=== PATIENT | female | born 1955 | race Caucasian/White ===

== ENCOUNTER 2019-01-13 09:42 | Day surgery (SDC) | payer BC, MEDICARE ==
[2019-01-13] MEDS ORDERED: Depo-Medrol 40 MG/ML IM ONE (09:43)
[2019-01-13] MEDS ORDERED: Marcaine 0.5% SDV 10 ML IJ ONE (09:43)
[2019-01-13] MEDS ORDERED: DIPRIVAN 200 MG/20 ML IV ONE (09:43)
--- NOTE | 2019-01-13 11:46 | XRAY ---
12 seconds fluoroscopy time in surgery for right shoulder injection.
--- NOTE | 2019-01-13 11:56 | XRAY ---
Indication: Left hip injection. Intraoperative fluoroscopy was provided for 12 seconds. Single digital spot image submitted for interpretation demonstrates needle tip projecting lateral to the femoral head. Small amount of contrast injected for needle tip placement. Correlate with intraoperative findings/report.
--- NOTE | 2019-01-13 12:21 | XRAY ---
Indication: Right shoulder injection. Intraoperative fluoroscopy was provided for 12 seconds. Single digital spot image submitted for interpretation demonstrates needle tip projecting over the superior medial humeral head. Small amount of contrast injected for needle tip placement. Correlate with intraoperative findings/report.
--- NOTE | 2019-01-13 12:22 | XRAY ---
6 seconds fluoroscopy time in surgery for left hip injection.
[2019-01-13] MEDS ORDERED: Lactated Ringers 1,000 ML IV ONE (14:59)
== END 2019-01-13 11:07 | disposition home or self-care (01) ==
LOC: SDC-PAIN 09:42
PROVIDERS: ATTEND Psychiatry & Neurology Pain Medicine
DX: M19.011 Primary osteoarthritis, right shoulder (principal); M16.12 Unilateral primary osteoarthritis, left hip; M25.511 Pain in right shoulder; M25.552 Pain in left hip; Z79.899 Other long term (current) drug therapy
CPT/HCPCS: 73030; 73501; 77002; J1030; J2704

== ENCOUNTER 2019-02-24 12:14 | Day surgery (SDC) | payer MEDICARE, OTHER ==
[2019-02-24] MEDS ORDERED: DIPRIVAN 200 MG/20 ML IV ONE (12:15)
[2019-02-24] MEDS ORDERED: Ketamine HCl 50 MG/ML IJ ONE (12:15)
[2019-02-24] MEDS ORDERED: Depo-Medrol 40 MG/ML IM ONE (12:15)
[2019-02-24] MEDS ORDERED: Marcaine 0.5% SDV 10 ML IJ ONE (12:15)
[2019-02-24] MEDS ORDERED: Lactated Ringers 1,000 ML IV ONE (13:05)
--- NOTE | 2019-02-24 13:57 | XRAY ---
8 seconds fluoroscopy time in surgery for left greater trochanteric bursa injection.
--- NOTE | 2019-02-24 14:06 | XRAY ---
Indication: Left hip injection. Intraoperative fluoroscopy was provided for 8 seconds. Single digital spot image submitted for interpretation demonstrates needle tip projecting lateral to the left greater trochanter. Small amount of contrast injected for needle tip placement. Correlate with intraoperative findings/report.
== END 2019-02-24 13:50 | disposition home or self-care (01) ==
LOC: SDC-PAIN 12:14
PROVIDERS: ATTEND Psychiatry & Neurology Pain Medicine
DX: M70.62 Trochanteric bursitis, left hip (principal); Z79.899 Other long term (current) drug therapy; I10 Essential (primary) hypertension; E03.9 Hypothyroidism, unspecified; D64.9 Anemia, unspecified; M06.9 Rheumatoid arthritis, unspecified; N19 Unspecified kidney failure
CPT/HCPCS: 73501; 77002; J1030; J2704

== ENCOUNTER 2019-06-30 12:17 | Day surgery (SDC) | payer MEDICARE ==
[2019-06-30] MEDS ORDERED: Depo-Medrol 40 MG/ML IM ONE (12:18)
[2019-06-30] MEDS ORDERED: Xylocaine-Mpf 2% 5 Ml Vial IJ ONE (12:18)
[2019-06-30] MEDS ORDERED: DIPRIVAN 200 MG/20 ML IV ONE (13:46)
--- NOTE | 2019-06-30 15:02 | XRAY ---
Indication: Bilateral L4-S1 MBB. Intraoperative fluoroscopy was provided for 31 seconds. 3 digital spot images submitted for interpretation demonstrates posterior needle tips projecting over the expected course of the left and right L4-S1 nerve roots. Correlate with intraoperative findings/report.
--- NOTE | 2019-06-30 15:17 | XRAY ---
31 seconds fluoroscopy time in surgery for bilateral L4-S1 MBB.
[2019-06-30] MEDS ORDERED: Lactated Ringers 1,000 ML IV ONE (16:46)
== END 2019-06-30 14:23 | disposition home or self-care (01) ==
LOC: SDC-PAIN 12:17
PROVIDERS: ATTEND Psychiatry & Neurology Pain Medicine
DX: M47.816 Spondylosis without myelopathy or radiculopathy, lumbar region (principal); M06.9 Rheumatoid arthritis, unspecified; I10 Essential (primary) hypertension; K21.9 Gastro-esophageal reflux disease without esophagitis; E03.9 Hypothyroidism, unspecified; D64.9 Anemia, unspecified; N19 Unspecified kidney failure; Z79.899 Other long term (current) drug therapy
CPT/HCPCS: 64493; 64494; 72020; 77002; J1030; J2704

== ENCOUNTER 2019-11-03 14:41 | Day surgery (SDC) | payer MEDICARE, OTHER ==
[2019-11-03] MEDS ORDERED: Marcaine 0.5% SDV 10 ML IJ ONE (14:42)
[2019-11-03] MEDS ORDERED: Xylocaine 1% Vial 30 ML PF IJ ONE (14:42)
[2019-11-03] MEDS ORDERED: Depo-Medrol 40 MG/ML IM ONE (14:42)
--- NOTE | 2019-11-03 17:04 | XRAY ---
Indication: Left hip injection. Intraoperative fluoroscopy was provided for 19 seconds. Single digital spot image submitted for interpretation demonstrates needle tip just lateral to the left femur neck. Small amount of contrast injected for needle tip placement. Correlate with intraoperative findings/report.
--- NOTE | 2019-11-03 17:10 | XRAY ---
19 seconds fluoroscopy time in surgery for left hip injection.
== END 2019-11-03 15:53 | disposition home or self-care (01) ==
LOC: SDC-PAIN 14:41
PROVIDERS: ATTEND Psychiatry & Neurology Pain Medicine
DX: M16.12 Unilateral primary osteoarthritis, left hip (principal); I10 Essential (primary) hypertension; E03.9 Hypothyroidism, unspecified; M06.9 Rheumatoid arthritis, unspecified; K21.9 Gastro-esophageal reflux disease without esophagitis; N19 Unspecified kidney failure; D64.9 Anemia, unspecified; Z79.899 Other long term (current) drug therapy
CPT/HCPCS: 20610; 73501; 77002; J1030; J2001; Q9966

== ENCOUNTER 2019-12-15 11:01 | Day surgery (SDC) | payer MEDICARE, OTHER ==
[2019-12-15] MEDS ORDERED: Depo-Medrol 40 MG/ML IM ONE (11:02)
[2019-12-15] MEDS ORDERED: Sodium Chloride 0.9(Preservative Free) 10 ML IJ ONE (11:02)
[2019-12-15] MEDS ORDERED: Xylocaine 1% Vial 30 ML PF IJ ONE (11:02)
[2019-12-15] MEDS ORDERED: Decadron 4 MG INJ IV ONE (11:02)
[2019-12-15] MEDS ORDERED: Ketamine HCl 50 MG/ML ONE (11:51)
[2019-12-15] MEDS ORDERED: DIPRIVAN 200 MG/20 ML IV ONE (11:51)
--- NOTE | 2019-12-15 13:11 | XRAY ---
Indication: Left L4-S1 transforaminal ANA. Intraoperative fluoroscopy was provided for 27 seconds. 4 digital spot images submitted for interpretation demonstrates posterior needle tips projecting over the expected course of the left L4 and L5 nerve roots. Small amount of contrast injected for needle tip placement. Correlate with intraoperative findings/report. Incidental partially visualized epidural stimulator leads.
--- NOTE | 2019-12-15 13:13 | XRAY ---
Indication: Bilateral piriformis injection. Intraoperative fluoroscopy was provided for 17 seconds. 2 digital spot images submitted for interpretation demonstrates needle tip projecting over the left and right piriformis muscles. Small amount of contrast injected for needle tip placement. Correlate with intraoperative findings/report.
--- NOTE | 2019-12-15 13:28 | XRAY ---
27 seconds fluoroscopy time in surgery for left L4-S1 transforaminal ANA.
--- NOTE | 2019-12-15 13:28 | XRAY ---
17 seconds fluoroscopy time in surgery for bilateral piriformis injections.
[2019-12-15] MEDS ORDERED: Lactated Ringers 1,000 ML IV ONE (15:30)
== END 2019-12-15 12:25 | disposition home or self-care (01) ==
LOC: SDC-PAIN 11:01
PROVIDERS: ATTEND Psychiatry & Neurology Pain Medicine
DX: M54.16 Radiculopathy, lumbar region (principal); M79.18 Myalgia, other site; I10 Essential (primary) hypertension; E03.9 Hypothyroidism, unspecified; D64.9 Anemia, unspecified; M06.9 Rheumatoid arthritis, unspecified; K21.9 Gastro-esophageal reflux disease without esophagitis; N19 Unspecified kidney failure; Z79.899 Other long term (current) drug therapy
CPT/HCPCS: 20552; 64483; 64484; 72100; 72202; 77002; 77003; J1030; J1100; J2001; J2704; Q9966

== ENCOUNTER 2021-01-17 11:26 | Observation (INO) | payer MEDICARE, OTHER ==
[2021-01-17] MEDS ORDERED: MORPHINE SULFATE 4 MG INJ IM ONE (11:57)
[2021-01-17] MEDS ORDERED: MORPHINE SULFATE 4 MG INJ ONE (12:03)
--- NOTE | 2021-01-17 13:11 | XRAY ---
Indication: Right leg/medial groin pain. Status post right hip surgery 2 weeks ago. Two-dimensional sonogram and color Doppler imaging of the major venous vessels of the lower leg was performed. Comparison: None No thrombus seen in the examined deep venous vessels of the right leg including greater saphenous vein. Veins demonstrate normal compressibility. Venous waveforms are normal with and without augmentation. Medial groin demonstrates a irregular shaped fluid collection with internal echogenicities at least 7 cm in greatest dimension and at least 1.5 cm in thickness. No associated abnormal color Doppler flow. Finding could be related to recent surgery such as postoperative hematoma/seroma. Infected fluid collection not completely excluded. Impression: 1. Right leg negative for DVT. 2. Medial groin echogenic fluid collection as detailed. Rule out postoperative hematoma/seroma versus infected fluid collection.
[2021-01-17 14:08] LABS: Absolute Neutrophil Ct (ANC) 5.23 (1.4-6.9); BASOPHIL % 0.4 % (0.0-0.4); Basophil (Absolute #) 0.03 (0-0.4); Eosinophil % 3.6 % (0.00-5.0); Eosinophil (Absolute #) 0.25 (0-0.5); Hematocrit 23.5 % (35-47); Lymphocyte (Absolute #) 0.96 (1.0-4.6); Mean Cell Volume 105.9 fl (78-100); Mean Corpuscular Hemoglobin 30.2 pg (26-32); Mean Corpuscular Hgb Concent. 28.5 g/dl (32-36); Mean Platelet Volume 9.1 fl (7.5-11.0); Monocyte (Absolute #) 0.39 (0.0-1.3); Monocytes % 5.7 % (0.0-12.0); Neutrophil % 76.3 % (36.0-66.0); Platelet Count 303 K/mm3 (150-450); Red Blood Count 2.22 M/mm3 (4.1-5.4); Red Cell Distribution Width 15.9 % (11.5-14.0); White Blood Count 6.9 K/mm3 (4.0-10.5)
--- NOTE | 2021-01-17 14:12 | ERPHSYRPT ---
- History of Present Illness Time Seen by Provider: 01/17/21 11:34 Source: patient Exam Limitations: no limitations Patient Subjective Stated Complaint: Pt states "I had hip replacement on jan [address] Bynum in [facility]. Two days ago I started to notice bruising and a tighte sara on my inner thigh and I think I might have a blood clot." Triage Nursing Assessment: Pt presented alert and oriented X 3, skin pwd pt ambulates with a limp. Pt has wound vac on right hip. Pt right medial thigh swollen, bruised and firm to touch. Physician History: 65 years old female with history of multiple right hip surgeries with a recent 1 done on January 05, 2021, history of DVT in right lower extremity presented in the ER with 2 days history of increasing swelling and tightness in the right upper thigh with associated dull aching moderate intensity pain which is aggravated with palpation and walking. No erythema but did notice some bruising. Denies any calf pain. Denies any fall or trauma. Patient is taking aspirin but not on any blood thinner and is concerned about having a DVT. Denies any fever or chills. Method of Injury: other Occurred: days ago (2) Quality: aching, cramping Severity of Pain-Max: moderate Severity of Pain-Current: moderate Lower Extremities Pain: thigh: right Modifying Factors: Improves With: immobilization. Worsens With: movement Associated Symptoms: none Allergies/Adverse Reactions: Sulfa (Sulfonamide Antibiotics) Allergy (Intermediate, Verified 01/17/21 11:49) Rash Home Medications: Aspirin EC 325 mg [Ecotrin 325 MG] 325 mg PO DAILY 01/17/21 [History] Baclofen 10 mg PO DAILY 01/17/21 [History] Fluconazole [Diflucan ] 150 mg PO DAILY 01/17/21 [History] Oxycodone HCl 10 mg PO DAILY 01/17/21 [History] cefaDROXiL [Cefadroxil] 500 mg PO DAILY 01/17/21 [History] Hx Tetanus, Diphtheria Vaccination/Date Given: No Hx Influenza Vaccination/Date Given: Yes Hx Pneumococcal Vaccination/Date Given: No Immunizations Up to Date: Yes Travel Risk - International Travel Have you traveled outside of the country in past 3 weeks: No - Coronavirus Screening Are you exhibiting any of the following symptoms?: No Close contact with a COVID-19 positive Pt in past 14-21 Days: No - Review of Systems Constitutional: No Symptoms Eyes: No Symptoms Ears, Nose, & Throat: No Symptoms Respiratory: No Symptoms Cardiac: No Symptoms Abdominal/Gastrointestinal: Constipation Genitourinary Symptoms: No Symptoms Musculoskeletal: Joint Pain, Myalgias Skin: No Symptoms Neurological: No Symptoms Psychological: No Symptoms Endocrine: No Symptoms Hematologic/Lymphatic: No Symptoms Immunological/Allergic: No Symptoms - Past Medical History Pertinent Past Medical History: Yes Neurological History: No Pertinent History ENT History: No Pertinent History Cardiac History: Hypertension Respiratory History: Bronchitis, COPD Endocrine Medical History: Hypothyroidism Musculoskeletal History: Arthritis GI Medical History: GERD, Ulcer History: Renal Disease Psycho-Social History: No Pertinent History Female Reproductive Disorders: No Pertinent History - Past Surgical History Past Surgical History: Yes Other Surgical History: right hip. hysterectomy. bilat knee. right rotator cuff - Social History Smoking Status: Former smoker Exposure to second hand smoke: No Drug Use: none Patient Lives Alone: No - Female History Hx Now: No - Nursing Vital Signs Nursing Vital Signs: Initial Vital Signs Temperature 98.1 F 01/17/21 11:38 Pulse Rate 82 01/17/21 11:38 Respiratory Rate 20 01/17/21 11:38 Blood Pressure 137/58 01/17/21 11:38 O2 Sat by Pulse Oximetry 94 L 01/17/21 11:38 Pain Scale Pain Intensity 4 - Physical Exam General Appearance: no apparent distress Eyes, Ears, Nose, Throat Exam: normal ENT inspection Neck Exam: normal inspection, full range of motion Cardiovascular/Respiratory Exam: normal breath sounds, regular rate/rhythm Gastrointestinal/Abdominal Exam: non-tender, soft, no organomegaly Back Exam: normal inspection, normal range of motion Hips Exam: bilateral: non-tender, normal inspection, normal range of motion, no evidence of injury Legs Exam: right leg: pain, soft tissue tenderness, swelling (Right upper inner thigh 6 x 6 cm area of swelling, tenderness, no increased temperature, no induration.), left leg: non-tender, normal inspection, normal range of motion, no evidence of injury Knees Exam: bilateral knee: non-tender, normal inspection, normal range of motion Ankle Exam: bilateral ankle: non-tender, normal inspection, normal range of motion, no evidence of injury Foot Exam: bilateral foot: non-tender, normal inspection, normal range of motion Neuro/Tendon Exam: normal sensation, normal motor functions Mental Status Exam: alert, oriented x 3, cooperative Skin Exam: normal color SpO2 Interpretation: normal SpO2: 99 O2 Delivery: Room Air - Course Nursing assessment & vital signs reviewed: Yes Ordered Tests: Active Orders 24 hr Category Date Time Status Bedrest ROUTINE Activity 01/17/21 17:31 Active Up With Assistance ROUTINE Activity 01/17/21 17:31 Active Code Status Order ROUTINE Care 01/17/21 17:31 Active Fall Protocol ROUTINE Care 01/17/21 17:31 Active IV Care Q6H Care 01/17/21 17:[address] in Observation ROUTINE Care 01/17/21 17:31 Active Andrew Nettles, Apply ROUTINE Care 01/17/21 17:31 Active Weight,Daily 0600 Care 01/17/21 17:31 Active VENOUS UNILAT/LIMITED EXTREMIT [US] Stat Exams 01/17/21 11:56 Completed BLOOD CULTURE Stat Lab 01/17/21 14:27 Received CBC W DIFF AM.LAB Lab 01/18/21 04:00 Ordered CBC W DIFF Stat Lab 01/17/21 13:50 Completed CMP AM.LAB Lab 01/18/21 04:00 Ordered CMP Stat Lab 01/17/21 13:50 Completed HEMOGLOBIN AND HEMATOCRIT Stat Lab 01/17/21 19:29 Ordered Lactic Acid Stat Lab 01/17/21 13:55 Completed UA W/RFX UR CULTURE Stat Lab 01/17/21 14:18 Completed Transfer Order Routine Transfer 01/17/21 Completed Medication Summary Generic Name Dose Route Start Last Admin Trade Name Freq PRN Reason Stop Dose Admin Acetaminophen 650 mg 01/17/21 17:31 Tylenol 325 Mg PO 02/16/21 17:30 Q4H PRN PRN PAIN AND/OR FEVER Famotidine 20 mg 01/17/21 22:00 Pepcid 20 Mg Vial IV 02/16/21 21:59 Q12HT ESTEBAN Sodium Chloride 1,000 mls @ 50 mls/hr 01/17/21 17:31 Sodium Chloride 0.9% 1000 Ml IV 02/16/21 17:30 .Q20H ESTEBAN Ondansetron HCl 4 mg 01/17/21 17:31 Zofran 4 Mg/2 Ml Vial IV 02/16/21 17:30 Q6H PRN PRN NAUSEA/VOMITING Discontinued Medications Generic Name Dose Route Start Last Admin Trade Name Melissa PRN Reason Stop Dose Admin Fentanyl Citrate 25 mcg 01/17/21 16:46 01/17/21 16:48 Sublimaze 100 Mcg/2 Ml IV 01/17/21 16:47 25 mcg STAT ONE Administration Fentanyl Citrate Confirm 01/17/21 16:46 Sublimaze 100 Mcg/2 Ml Administered 01/17/21 16:47 Dose 100 mcg .ROUTE .STK-MED ONE Sodium Chloride 500 mls @ 500 mls/hr 01/17/21 15:26 01/17/21 16:50 Sodium Chloride 0.9% 500 Ml IV 01/17/21 16:25 500 mls/hr .Q1H ONE Administration Sodium Chloride Confirm 01/17/21 16:49 Sodium Chloride 0.9% 500 Ml Administered 01/17/21 16:50 Dose 500 mls @ ud IV .STK-MED ONE Morphine Sulfate 4 mg 01/17/21 11:57 01/17/21 12:05 Morphine Sulfate 4 Mg Inj IM 01/17/21 11:58 4 mg STAT ONE Administration Morphine Sulfate Confirm 01/17/21 12:03 Morphine Sulfate 4 Mg Inj Administered 01/17/21 12:04 Dose 4 mg .ROUTE .STK-MED ONE Ondansetron HCl 4 mg 01/17/21 16:46 01/17/21 16:48 Zofran 4 Mg/2 Ml Vial IV 01/17/21 16:47 4 mg STAT ONE Administration Ondansetron HCl Confirm 01/17/21 16:46 Zofran 4 Mg/2 Ml Vial Administered 01/17/21 16:47 Dose 4 mg .ROUTE .STK-MED ONE Lab/Rad Data: Laboratory Result Diagrams 01/17/21 13:50 01/17/21 13:50 Laboratory Results 01/17/21 01/17/21 01/17/21 Range/Units 14:18 13:55 13:50 WBC (4.0-10.5) K/mm3 RBC (4.1-5.4) M/mm3 Hgb (12.0-16.0) gm/dl Hct (35-47) % MCV (78-100) fl MCH (26-32) pg MCHC (32-36) g/dl RDW (11.5-14.0) % Plt Count (150-450) K/mm3 MPV (7.5-11.0) fl Gran % (36.0-66.0) % Eos # (Auto) (0-0.5) Absolute Lymphs (auto) (1.0-4.6) Absolute Monos (auto) (0.0-1.3) Lymphocytes % (24.0-44.0) % Monocytes % (0.0-12.0) % Eosinophils % (0.00-5.0) % Basophils % (0.0-0.4) % Absolute Granulocytes (1.4-6.9) Basophils # (0-0.4) Sodium 140 (137-145) mmol/L Potassium 4.1 (3.5-5.1) mmol/L Chloride 109 H (98-107) mmol/L Carbon Dioxide 24 (22-30) mmol/L Anion Gap 11.5 (5-15) MEQ/L BUN 32 H (7-17) mg/dL Creatinine 0.94 (0.52-1.04) mg/dL Estimated GFR > 60.0 ML/MIN Glucose 85 (74-106) mg/dL Lactic Acid 0.5 (0.4-2.0) Calcium 8.6 (8.4-10.2) mg/dL Total Bilirubin 0.30 (0.2-1.3) mg/dL AST 19 (14-36) U/L ALT 6 (0-35) U/L Alkaline Phosphatase 84 (38-126) U/L Serum Total Protein 6.3 (6.3-8.2) g/dL Albumin 3.4 L (3.5-5.0) g/dL Urine Color YELLOW (YELLOW) Urine Appearance CLEAR (CLEAR) Urine pH 6.0 (5-6) Ur Specific [place] 1.027 (1.005-1.025) Urine Protein NEGATIVE (Negative) Urine Ketones NEGATIVE (NEGATIVE) Urine Blood NEGATIVE (0-5) Basil/ul Urine Nitrite NEGATIVE (NEGATIVE) Urine Bilirubin NEGATIVE (NEGATIVE) Urine Urobilinogen NEGATIVE (0-1) mg/dL Ur Leukocyte Esterase NEGATIVE (NEGATIVE) Urine WBC (Auto) 0-2 (0-5) /HPF Urine RBC (Auto) NONE (0-2) /HPF U Hyaline Cast (Auto) 3-5 (0-2) /LPF U Epithel Cells (Auto) RARE (FEW) /HPF Urine Bacteria (Auto) NONE (NEGATIVE) /HPF Urine Mucus (Auto) SLIGHT (NEGATIVE) /HPF Urine Culture Reflexed NO (NO) Urine Glucose NEGATIVE (NEGATIVE) mg/dL 01/17/21 Range/Units 13:50 WBC 6.9 (4.0-10.5) K/mm3 RBC 2.22 L (4.1-5.4) M/mm3 Hgb 6.7 L* (12.0-16.0) gm/dl Hct 23.5 L (35-47) % MCV 105.9 H (78-100) fl MCH 30.2 (26-32) pg MCHC 28.5 L (32-36) g/dl RDW 15.9 H (11.5-14.0) % Plt Count 303 (150-450) K/mm3 MPV 9.1 (7.5-11.0) fl Gran % 76.3 H (36.0-66.0) % Eos # (Auto) 0.25 (0-0.5) Absolute Lymphs (auto) 0.96 L (1.0-4.6) Absolute Monos (auto) 0.39 (0.0-1.3) Lymphocytes % 14.0 L (24.0-44.0) % Monocytes % 5.7 (0.0-12.0) % Eosinophils % 3.6 (0.00-5.0) % Basophils % 0.4 (0.0-0.4) % Absolute Granulocytes 5.23 (1.4-6.9) Basophils # 0.03 (0-0.4) Sodium (137-145) mmol/L Potassium (3.5-5.1) mmol/L Chloride (98-107) mmol/L Carbon Dioxide (22-30) mmol/L Anion Gap (5-15) MEQ/L BUN (7-17) mg/dL Creatinine (0.52-1.04) mg/dL Estimated GFR ML/MIN Glucose (74-106) mg/dL Lactic Acid (0.4-2.0) Calcium (8.4-10.2) mg/dL Total Bilirubin (0.2-1.3) mg/dL AST (14-36) U/L ALT (0-35) U/L Alkaline Phosphatase (38-126) U/L Serum Total Protein (6.3-8.2) g/dL Albumin (3.5-5.0) g/dL Urine Color (YELLOW) Urine Appearance (CLEAR) Urine pH (5-6) Ur Specific [place] (1.005-1.025) Urine Protein (Negative) Urine Ketones (NEGATIVE) Urine Blood (0-5) Basil/ul Urine Nitrite (NEGATIVE) Urine Bilirubin (NEGATIVE) Urine Urobilinogen (0-1) mg/dL Ur Leukocyte Esterase (NEGATIVE) Urine WBC (Auto) (0-5) /HPF Urine RBC (Auto) (0-2) /HPF U Hyaline Cast (Auto) (0-2) /LPF U Epithel Cells (Auto) (FEW) /HPF Urine Bacteria (Auto) (NEGATIVE) /HPF Urine Mucus (Auto) (NEGATIVE) /HPF Urine Culture Reflexed (NO) Urine Glucose (NEGATIVE) mg/dL - Progress Progress: pain not gone completely, re-examined Progress Note: 01/17/21 14:39 65 years old is evaluated for right upper thigh pain and swelling. She is given morphine for symptomatic relief. I have obtained ultrasound which is negative for DVT but did show a possible hematoma/seroma. Abscess/infectious process could not be ruled out. I have obtained blood work and has normal white count with a hemoglobin of 6.7. Patient report last time when she was discharged from hospital her hemoglobin was in mid sevens after transfusion as it dropped after surgery. She is currently on antibiotics prophylactically for any infectious process. Chemistries grossly unremarkable. He is given small fluid bolus as patient was reporting some lightheadedness and generalized weakness. I believe this is secondary to her low hemoglobin. I have called Dr. Bynum and is waiting for his call back. 01/17/21 16:47 I have discussed with her orthopedic surgeon Dr. Bynum, have reviewed ultrasound findings, lab work and patient presentation, recommended transfusion as it does not seem that she has infectious process going on. Recommended monitoring her H&H and if remains stable can be discharged after transfusions. I have discussed with Dr. Hays, who agrees with admission and here as an observation with transfusion and monitoring. I have discussed with him about Dr. Bynum recommendations and he is okay with keeping patient in here. Plan discussed with patient to understand and agrees with it. Risk and benefits of transfusions discussed with patient in detail and she wants to go ahead with transfusions of packed RBCs. Discussed with : Antonia Will see patient in: hospital (observation) Counseled pt/family regarding: lab results, diagnosis, rad results - Departure Departure Disposition: Observation Clinical Impression: Symptomatic anemia Thigh hematoma Qualifiers: Encounter type: initial encounter Laterality: right Qualified Code(s): S70.11XA - Contusion of right thigh, initial encounter Condition: Stable Critical Care Time: No
[2021-01-17 14:21] LABS: ALBUMIN 3.4 g/dL (3.5-5.0); ALKALINE PHOSPHATASE 84 U/L (38-126); ANION GAP 11.5 MEQ/L (5-15); BLOOD UREA NITROGEN 32 mg/dL (7-17); CHLORIDE 109 mmol/L (98-107); Calcium 8.6 mg/dL (8.4-10.2); Carbon Dioxide 24 mmol/L (22-30); Creatinine 1 0.94 mg/dL (0.52-1.04); EST GLOMERULAR FILTRATION RATE > 60.0 ML/MIN; Glucose 85 mg/dL (74-106); Potassium 4.1 mmol/L (3.5-5.1); SGOT/AST 19 U/L (14-36); SGPT/ALT 6 U/L (0-35); SODIUM 140 mmol/L (137-145); Total Protein 6.3 g/dL (6.3-8.2)
[2021-01-17 14:25] LABS: Hemoglobin 6.7 gm/dl (12.0-16.0)
[2021-01-17 14:58] LABS: Appearance CLEAR (CLEAR); Bilirubin NEGATIVE (NEGATIVE); Blood NEGATIVE Ery/ul (0-5); Epithelial Cells RARE /HPF (FEW); Glucose NEGATIVE (NEGATIVE); Ketones NEGATIVE (NEGATIVE); Leukocyte Esterase NEGATIVE (NEGATIVE); Mucus SLIGHT /HPF (NEGATIVE); Nitrite NEGATIVE (NEGATIVE); Protein,Urine Dip NEGATIVE (Negative); Specific Gravity 1.027 (1.005-1.025); Urobilinogen NEGATIVE mg/dL (0-1); WBC 0-2 /HPF (0-5)
[2021-01-17] MEDS ORDERED: Sodium Chloride 0.9% 500 ML 500 ML IV ONE ×2 (15:26→16:49)
[2021-01-17] MEDS ORDERED: SUBLIMAZE 100 MCG/2 ML IV ONE (16:46)
[2021-01-17] MEDS ORDERED: SUBLIMAZE 100 MCG/2 ML ONE (16:46)
[2021-01-17] MEDS ORDERED: Zofran 4 MG/2 ML VIAL ONE (16:46)
[2021-01-17] MEDS ORDERED: Zofran 4 MG/2 ML VIAL IV ONE (16:46)
[2021-01-17] MEDS ORDERED: TYLENOL 325 MG PO PRN (17:31)
[2021-01-17] MEDS ORDERED: Sodium Chloride 0.9% 1000 ML 1,000 ML IV SCH (17:31)
[2021-01-17] MEDS ORDERED: Zofran 4 MG/2 ML VIAL IV PRN (17:31)
[2021-01-17 18:51] LABS: ABO TYPING O; Antibody Screen NEGATIVE (NEGATIVE); RH TYPING POSITIVE
[2021-01-17 18:53] LABS: CROSS MATCH (PRBC) COMPATIBLE (COMPATIBLE)
[2021-01-17 20:20] LABS: Slide Review 1 YES
[2021-01-17] MEDS ORDERED: Oxy-IR 5 MG PO PRN ×2 (21:15→21:23)
[2021-01-17] MEDS: LIORESAL 10 MG PO SCH (21:56)
[2021-01-17] MEDS ORDERED: Requip 0.5 MG PO SCH (22:00)
[2021-01-17] MEDS: Naprosyn 500 MG PO SCH (22:07)
[2021-01-17] MEDS: Ecotrin 325 MG PO SCH (22:10)
[2021-01-17] MEDS: Pepcid 20 MG VIAL IV SCH ×2 (22:10→22:16)
[2021-01-17] MEDS: TOPIRAMATE PO SCH (22:11)
[2021-01-18] MEDS: Pepcid 20 MG VIAL IV SCH ×2 (01:32→09:55)
[2021-01-18 02:24] LABS: BASOPHIL % 0.4 % (0.0-0.4); Basophil (Absolute #) 0.02 (0-0.4); Hematocrit 23.9 % (35-47); Lymphocyte (Absolute #) 1.05 (1.0-4.6); Mean Cell Volume 102.6 fl (78-100); Mean Corpuscular Hgb Concent. 29.3 g/dl (32-36); Mean Platelet Volume 8.3 fl (7.5-11.0); Monocyte (Absolute #) 0.44 (0.0-1.3); Monocytes % 8.8 % (0.0-12.0); Neutrophil % 63.8 % (36.0-66.0); Platelet Count 257 K/mm3 (150-450); Red Blood Count 2.33 M/mm3 (4.1-5.4); Red Cell Distribution Width 15.6 % (11.5-14.0)
[2021-01-18 03:55] LABS: CROSS MATCH (PRBC) COMPATIBLE (COMPATIBLE)
[2021-01-18 05:00] LABS: ALBUMIN 2.8 g/dL (3.5-5.0); ALKALINE PHOSPHATASE 79 U/L (38-126); ANION GAP 8.2 MEQ/L (5-15); BLOOD UREA NITROGEN 28 mg/dL (7-17); CHLORIDE 113 mmol/L (98-107); Carbon Dioxide 22 mmol/L (22-30); Creatinine 1 0.75 mg/dL (0.52-1.04); EST GLOMERULAR FILTRATION RATE > 60.0 ML/MIN; Glucose 93 mg/dL (74-106); SGOT/AST 17 U/L (14-36); SGPT/ALT 7 U/L (0-35); SODIUM 139 mmol/L (137-145); Total Protein 5.4 g/dL (6.3-8.2)
[2021-01-18 07:05] VITALS: BP 104/53; PULSE 65; O2SAT 97
[2021-01-18 09:05] LABS: Hemoglobin 9.1 gm/dl (12.0-16.0)
[2021-01-18 09:12] LABS: Hematocrit 30.4 % (35-47)
[2021-01-18] MEDS: Ecotrin 325 MG PO SCH (09:52)
[2021-01-18] MEDS: Naprosyn 500 MG PO SCH (09:52)
[2021-01-18] MEDS: LIORESAL 10 MG PO SCH (09:53)
[2021-01-18] MEDS: TOPIRAMATE PO SCH (09:55)
--- NOTE | 2021-01-18 10:16 | PCM.SSS ---
History of Present Illness - Chief Complaint Chief Complaint: swelling on right thigh History of Present Illness: is a 65 year old female with history of multiple right hip surgeries with a recent 1 done on January 05, 2021, history of DVT in right lower extremity presented in the ER with 2 days history of increasing swelling and tightness in the right upper thigh with associated dull aching moderate intensity pain which is aggravated with palpation and walking. No erythema but did notice some bruising. Denies any calf pain. Denies any fall or trauma. Patient is taking aspirin but not on any blood thinner and is concerned about having a DVT. Denies any fever or chills. Method of Injury: other Occurred: days ago (2) Quality: aching, cramping Severity of Pain-Max: moderate Severity of Pain-Current: moderate Lower Extremities Pain: thigh: right Modifying Factors: Improves With: immobilization. Worsens With: movement Associated Symptoms: none. - Review of Systems Constitutional: No Fever, No Chills Eyes: No Symptoms Ears, Nose, & Throat: No Symptoms Respiratory: No Cough, No Short Of Breath Cardiac: No Chest Pain, No Edema, No Syncope Abdominal/Gastrointestinal: No Abdominal Pain, No Nausea, No Vomiting, No Diarrhea Genitourinary Symptoms: No Dysuria Musculoskeletal: Other (right thigh swelling, hematoma, recent hip surgery), No Back Pain, No Neck Pain Skin: No Rash Neurological: No Dizziness, No Focal Weakness, No Sensory Changes Psychological: No Symptoms Endocrine: No Symptoms Hematologic/Lymphatic: No Symptoms Immunological/Allergic: No Symptoms Medications & Allergies Home Medications: Home Medication List Aspirin EC 325 mg [Ecotrin 325 MG] 325 mg PO BID 01/17/21 [History Confirmed 01/18/21] Baclofen 10 mg PO BID 01/17/21 [History Confirmed 01/18/21] Fluconazole [Diflucan ] 150 mg PO UD 01/17/21 [History Confirmed 01/18/21] Oxycodone HCl 10 mg PO Q6H PRN PRN 01/17/21 [History Confirmed 01/18/21] cefaDROXiL [Cefadroxil] 500 mg PO BID 01/17/21 [History Confirmed 01/18/21] Acetaminophen 500 mg [Tylenol Extra Strength 500 mg] 500 mg PO TID PRN PRN 01/18/21 [History Confirmed 01/18/21] Ergocalciferol (Vitamin D2) [Vitamin D2] 50,000 unit PO Q7D 01/18/21 [History Confirmed 01/18/21] Levothyroxine Sodium 75 Mcg [Synthroid 75 Mcg] 75 mcg PO DAILY 01/18/21 [History Confirmed 01/18/21] Naproxen Sodium 220 mg [Aleve 220 MG] 220 mg PO BID 01/18/21 [History Confirmed 01/18/21] Omeprazole 40 mg PO DAILY 01/18/21 [History Confirmed 01/18/21] Ropinirole HCl [Requip] 1 mg PO HS 01/18/21 [History Confirmed 01/18/21] Topiramate [Topamax] 150 mg PO BID 01/18/21 [History Confirmed 01/18/21] Allergies/Adverse Reactions: Allergies Allergy/AdvReac Type Severity Reaction Status Date / Time sulfasalazine AdvReac Verified 01/18/21 07:27 - Past Medical History Past Medical History: Yes Neurological History: No Pertinent History ENT History: No Pertinent History Cardiac History: Hypertension Respiratory History: Bronchitis, COPD Endocrine Medical History: Hypothyroidism Musculoskelatal History: Arthritis GI Medical History: GERD, Ulcer History: Renal Disease Pyscho-Social History: No Pertinent History Reproductive Disorders: No Pertinent History - Female History Hx Last Menstrual Period: Hysterectomy at age 39 Are you now?: No - Past Surgical History Past Surgical History: Yes Musculskeletal Surgical Hx: Joint Replacement, Orthopedic Surgery Female Surgical History: Hysterectomy Other Surgical History: right hip. hysterectomy. bilat knee. right rotator cuff - Social History Smoking Status: Former smoker Exposure to second hand smoke: No Alcohol: None Drug Use: none - Physical Exam Vital Signs: Vital Signs - 24 hr Temp Pulse Resp BP Pulse Ox 01/18/21 07:04 97.5 F 65 18 104/53 97 01/18/21 04:00 97.5 F 77 12 106/56 98 01/18/21 00:00 98.1 F 74 14 96/52 96 01/17/21 20:00 98.1 F 79 16 124/59 99 01/17/21 18:30 99 01/17/21 18:04 98.5 F 82 16 122/56 95 01/17/21 17:21 98.5 F 83 22 122/56 95 01/17/21 17:04 97.9 F 79 20 114/68 98 01/17/21 16:10 82 16 120/70 100 01/17/21 15:30 97.9 F 79 20 90/70 100 01/17/21 14:23 97.9 F 74 20 124/80 98 01/17/21 13:21 97.9 F 80 18 119/68 99 01/17/21 12:31 98.0 F 61 20 127/76 100 01/17/21 11:38 98.1 F 82 20 137/58 94 L General Appearance: no apparent distress, alert Neurologic Exam: alert, oriented x 3, cooperative, normal mood/affect, nml cerebellar function, nml station & gait, sensation nml, No motor deficits Eye Exam: PERRL/EOMI, eyes nml inspection Ears, Nose, Throat Exam: normal ENT inspection, TMs normal, pharynx normal, moist mucous membranes Neck Exam: normal inspection, non-tender, supple, full range of motion Respiratory Exam: normal breath sounds, lungs clear, No respiratory distress Cardiovascular Exam: regular rate/rhythm, normal heart sounds, normal peripheral pulses Gastrointestinal/Abdomen Exam: soft, normal bowel sounds, No tenderness, No mass Back Exam: normal inspection, normal range of motion, No CVA tenderness, No vertebral tenderness Extremity Exam: normal inspection, normal range of motion, pelvis stable, swelling (right thigh) Skin Exam: normal color, warm, dry, No rash Wound Assessment: Skin/Wound Assessment Wound/Incision Assessment Start: 01/17/21 19:05 Text: Status: Active Freq: Q6H Protocol: Document 01/18/21 07:42 MB (Rec: 01/18/21 08:09 MB [id number]) Wound/Incision Assessment Right Lateral Hip Wound Assessment Admission Wound Type Incision Dressing Status Dry & Intact Drainage Amount None Drainage Description Serosanguineous Drainage Odor None/Absent Surrounding Tissue [place] Comment NPWT Lymphatic Exam: No adenopathy Results - Labs Lab/Micro Results: Lab Results-Last 24 Hours 01/17/21 01/17/21 01/17/21 Range/Units 13:50 13:50 13:55 WBC 6.9 (4.0-10.5) K/mm3 RBC 2.22 L (4.1-5.4) M/mm3 Hgb 6.7 L* (12.0-16.0) gm/dl Hct 23.5 L (35-47) % MCV 105.9 H (78-100) fl MCH 30.2 (26-32) pg MCHC 28.5 L (32-36) g/dl RDW 15.9 H (11.5-14.0) % Plt Count 303 (150-450) K/mm3 MPV 9.1 (7.5-11.0) fl Gran % 76.3 H (36.0-66.0) % Eos # (Auto) 0.25 (0-0.5) Absolute Lymphs (auto) 0.96 L (1.0-4.6) Absolute Monos (auto) 0.39 (0.0-1.3) Lymphocytes % 14.0 L (24.0-44.0) % Monocytes % 5.7 (0.0-12.0) % Eosinophils % 3.6 (0.00-5.0) % Basophils % 0.4 (0.0-0.4) % Absolute Granulocytes 5.23 (1.4-6.9) Basophils # 0.03 (0-0.4) Sodium 140 (137-145) mmol/L Potassium 4.1 (3.5-5.1) mmol/L Chloride 109 H (98-107) mmol/L Carbon Dioxide 24 (22-30) mmol/L Anion Gap 11.5 (5-15) MEQ/L BUN 32 H (7-17) mg/dL Creatinine 0.94 (0.52-1.04) mg/dL Estimated GFR > 60.0 ML/MIN Glucose 85 (74-106) mg/dL Lactic Acid 0.5 (0.4-2.0) Calcium 8.6 (8.4-10.2) mg/dL Total Bilirubin 0.30 (0.2-1.3) mg/dL AST 19 (14-36) U/L ALT 6 (0-35) U/L Alkaline Phosphatase 84 (38-126) U/L Serum Total Protein 6.3 (6.3-8.2) g/dL Albumin 3.4 L (3.5-5.0) g/dL Urine Color (YELLOW) Urine Appearance (CLEAR) Urine pH (5-6) Ur Specific [place] (1.005-1.025) Urine Protein (Negative) Urine Ketones (NEGATIVE) Urine Blood (0-5) Basil/ul Urine Nitrite (NEGATIVE) Urine Bilirubin (NEGATIVE) Urine Urobilinogen (0-1) mg/dL Ur Leukocyte Esterase (NEGATIVE) Urine WBC (Auto) (0-5) /HPF Urine RBC (Auto) (0-2) /HPF U Hyaline Cast (Auto) (0-2) /LPF U Epithel Cells (Auto) (FEW) /HPF Urine Bacteria (Auto) (NEGATIVE) /HPF Urine Mucus (Auto) (NEGATIVE) /HPF Urine Culture Reflexed (NO) Urine Glucose (NEGATIVE) mg/dL Slides for Path Review YES ABO Group Rh Factor Antibody Screen (NEGATIVE) Crossmatch (COMPATIBLE) 01/17/21 01/17/21 01/17/21 Range/Units 14:18 16:42 16:42 WBC (4.0-10.5) K/mm3 RBC (4.1-5.4) M/mm3 Hgb (12.0-16.0) gm/dl Hct (35-47) % MCV (78-100) fl MCH (26-32) pg MCHC (32-36) g/dl RDW (11.5-14.0) % Plt Count (150-450) K/mm3 MPV (7.5-11.0) fl Gran % (36.0-66.0) % Eos # (Auto) (0-0.5) Absolute Lymphs (auto) (1.0-4.6) Absolute Monos (auto) (0.0-1.3) Lymphocytes % (24.0-44.0) % Monocytes % (0.0-12.0) % Eosinophils % (0.00-5.0) % Basophils % (0.0-0.4) % Absolute Granulocytes (1.4-6.9) Basophils # (0-0.4) Sodium (137-145) mmol/L Potassium (3.5-5.1) mmol/L Chloride (98-107) mmol/L Carbon Dioxide (22-30) mmol/L Anion Gap (5-15) MEQ/L BUN (7-17) mg/dL Creatinine (0.52-1.04) mg/dL Estimated GFR ML/MIN Glucose (74-106) mg/dL Lactic Acid (0.4-2.0) Calcium (8.4-10.2) mg/dL Total Bilirubin (0.2-1.3) mg/dL AST (14-36) U/L ALT (0-35) U/L Alkaline Phosphatase (38-126) U/L Serum Total Protein (6.3-8.2) g/dL Albumin (3.5-5.0) g/dL Urine Color YELLOW (YELLOW) Urine Appearance CLEAR (CLEAR) Urine pH 6.0 (5-6) Ur Specific [place] 1.027 (1.005-1.025) Urine Protein NEGATIVE (Negative) Urine Ketones NEGATIVE (NEGATIVE) Urine Blood NEGATIVE (0-5) Basil/ul Urine Nitrite NEGATIVE (NEGATIVE) Urine Bilirubin NEGATIVE (NEGATIVE) Urine Urobilinogen NEGATIVE (0-1) mg/dL Ur Leukocyte Esterase NEGATIVE (NEGATIVE) Urine WBC (Auto) 0-2 (0-5) /HPF Urine RBC (Auto) NONE (0-2) /HPF U Hyaline Cast (Auto) 3-5 (0-2) /LPF U Epithel Cells (Auto) RARE (FEW) /HPF Urine Bacteria (Auto) NONE (NEGATIVE) /HPF Urine Mucus (Auto) SLIGHT (NEGATIVE) /HPF Urine Culture Reflexed NO (NO) Urine Glucose NEGATIVE (NEGATIVE) mg/dL Slides for Path Review ABO Group O Rh Factor POSITIVE Antibody Screen NEGATIVE (NEGATIVE) Crossmatch COMPATIBLE (COMPATIBLE) 01/18/21 01/18/21 01/18/21 Range/Units 02:15 02:15 03:00 WBC 5.0 (4.0-10.5) K/mm3 RBC 2.33 L (4.1-5.4) M/mm3 Hgb 7.0 L (12.0-16.0) gm/dl Hct 23.9 L (35-47) % MCV 102.6 H (78-100) fl MCH 30.0 (26-32) pg MCHC 29.3 L (32-36) g/dl RDW 15.6 H (11.5-14.0) % Plt Count 257 (150-450) K/mm3 MPV 8.3 (7.5-11.0) fl Gran % 63.8 (36.0-66.0) % Eos # (Auto) 0.30 (0-0.5) Absolute Lymphs (auto) 1.05 (1.0-4.6) Absolute Monos (auto) 0.44 (0.0-1.3) Lymphocytes % 21.0 L (24.0-44.0) % Monocytes % 8.8 (0.0-12.0) % Eosinophils % 6.0 H (0.00-5.0) % Basophils % 0.4 (0.0-0.4) % Absolute Granulocytes 3.20 (1.4-6.9) Basophils # 0.02 (0-0.4) Sodium 139 (137-145) mmol/L Potassium 4.0 (3.5-5.1) mmol/L Chloride 113 H (98-107) mmol/L Carbon Dioxide 22 (22-30) mmol/L Anion Gap 8.2 (5-15) MEQ/L BUN 28 H (7-17) mg/dL Creatinine 0.75 (0.52-1.04) mg/dL Estimated GFR > 60.0 ML/MIN Glucose 93 (74-106) mg/dL Lactic Acid (0.4-2.0) Calcium 8.0 L (8.4-10.2) mg/dL Total Bilirubin 0.20 (0.2-1.3) mg/dL AST 17 (14-36) U/L ALT 7 (0-35) U/L Alkaline Phosphatase 79 (38-126) U/L Serum Total Protein 5.4 L (6.3-8.2) g/dL Albumin 2.8 L (3.5-5.0) g/dL Urine Color (YELLOW) Urine Appearance (CLEAR) Urine pH (5-6) Ur Specific [place] (1.005-1.025) Urine Protein (Negative) Urine Ketones (NEGATIVE) Urine Blood (0-5) Basil/ul Urine Nitrite (NEGATIVE) Urine Bilirubin (NEGATIVE) Urine Urobilinogen (0-1) mg/dL Ur Leukocyte Esterase (NEGATIVE) Urine WBC (Auto) (0-5) /HPF Urine RBC (Auto) (0-2) /HPF U Hyaline Cast (Auto) (0-2) /LPF U Epithel Cells (Auto) (FEW) /HPF Urine Bacteria (Auto) (NEGATIVE) /HPF Urine Mucus (Auto) (NEGATIVE) /HPF Urine Culture Reflexed (NO) Urine Glucose (NEGATIVE) mg/dL Slides for Path Review ABO Group Rh Factor Antibody Screen (NEGATIVE) Crossmatch COMPATIBLE (COMPATIBLE) 01/18/21 Range/Units 08:50 WBC (4.0-10.5) K/mm3 RBC (4.1-5.4) M/mm3 Hgb 9.1 L D (12.0-16.0) gm/dl Hct 30.4 L (35-47) % MCV (78-100) fl MCH (26-32) pg MCHC (32-36) g/dl RDW (11.5-14.0) % Plt Count (150-450) K/mm3 MPV (7.5-11.0) fl Gran % (36.0-66.0) % Eos # (Auto) (0-0.5) Absolute Lymphs (auto) (1.0-4.6) Absolute Monos (auto) (0.0-1.3) Lymphocytes % (24.0-44.0) % Monocytes % (0.0-12.0) % Eosinophils % (0.00-5.0) % Basophils % (0.0-0.4) % Absolute Granulocytes (1.4-6.9) Basophils # (0-0.4) Sodium (137-145) mmol/L Potassium (3.5-5.1) mmol/L Chloride (98-107) mmol/L Carbon Dioxide (22-30) mmol/L Anion Gap (5-15) MEQ/L BUN (7-17) mg/dL Creatinine (0.52-1.04) mg/dL Estimated GFR ML/MIN Glucose (74-106) mg/dL Lactic Acid (0.4-2.0) Calcium (8.4-10.2) mg/dL Total Bilirubin (0.2-1.3) mg/dL AST (14-36) U/L ALT (0-35) U/L Alkaline Phosphatase (38-126) U/L Serum Total Protein (6.3-8.2) g/dL Albumin (3.5-5.0) g/dL Urine Color (YELLOW) Urine Appearance (CLEAR) Urine pH (5-6) Ur Specific [place] (1.005-1.025) Urine Protein (Negative) Urine Ketones (NEGATIVE) Urine Blood (0-5) Basil/ul Urine Nitrite (NEGATIVE) Urine Bilirubin (NEGATIVE) Urine Urobilinogen (0-1) mg/dL Ur Leukocyte Esterase (NEGATIVE) Urine WBC (Auto) (0-5) /HPF Urine RBC (Auto) (0-2) /HPF U Hyaline Cast (Auto) (0-2) /LPF U Epithel Cells (Auto) (FEW) /HPF Urine Bacteria (Auto) (NEGATIVE) /HPF Urine Mucus (Auto) (NEGATIVE) /HPF Urine Culture Reflexed (NO) Urine Glucose (NEGATIVE) mg/dL Slides for Path Review ABO Group Rh Factor Antibody Screen (NEGATIVE) Crossmatch (COMPATIBLE) - Radiology Impressions Radiology Exams & Impressions: Radiology Procedures Category Date Time Status VENOUS UNILAT/LIMITED EXTREMIT [US] Stat Exams 01/17/21 11:56 Completed Assessment/Plan (1) Symptomatic anemia Current Visit: Yes Status: Acute Assessment & Plan: Chief Complaint Diagnosis Symptomatic Anemia Allergies Allergy/AdvReac Type Severity Reaction Status Date / Time sulfasalazine AdvReac Verified 01/18/21 07:27 Vital Signs (Last 24 hours) Temp Pulse Resp BP Pulse Ox 01/18/21 07:04 97.5 F 65 18 104/53 97 01/18/21 04:00 97.5 F 77 12 106/56 98 01/18/21 00:00 98.1 F 74 14 96/52 96 01/17/21 20:00 98.1 F 79 16 124/59 99 01/17/21 18:30 99 01/17/21 18:04 98.5 F 82 16 122/56 95 01/17/21 17:21 98.5 F 83 22 122/56 95 01/17/21 17:04 97.9 F 79 20 114/68 98 01/17/21 16:10 82 16 120/70 100 01/17/21 15:30 97.9 F 79 20 90/70 100 01/17/21 14:23 97.9 F 74 20 124/80 98 01/17/21 13:21 97.9 F 80 18 119/68 99 01/17/21 12:31 98.0 F 61 20 127/76 100 01/17/21 11:38 98.1 F 82 20 137/58 94 L Home Medications Medication Instructions Recorded Confirmed Last Taken Type Aspirin EC 325 mg [Ecotrin 325 325 mg PO BID 01/17/21 01/18/21 Unknown History MG] Baclofen 10 mg PO BID 01/17/21 01/18/21 Unknown History Fluconazole [Diflucan ] 150 mg PO UD 01/17/21 01/18/21 Unknown History Oxycodone HCl 10 mg PO Q6H PRN PRN 01/17/21 01/18/21 Unknown History cefaDROXiL [Cefadroxil] 500 mg PO BID 01/17/21 01/18/21 Unknown History Acetaminophen 500 mg [Tylenol 500 mg PO TID PRN PRN 01/18/21 01/18/21 Unknown History Extra Strength 500 mg] Ergocalciferol (Vitamin D2) 50,000 unit PO Q7D 01/18/21 01/18/21 01/12/21 History [Vitamin D2] Levothyroxine Sodium 75 Mcg 75 mcg PO DAILY 01/18/21 01/18/21 Unknown History [Synthroid 75 Mcg] Naproxen Sodium 220 mg [Aleve 220 mg PO BID 01/18/21 01/18/21 Unknown History 220 MG] Omeprazole 40 mg PO DAILY 01/18/21 01/18/21 Unknown History Ropinirole HCl [Requip] 1 mg PO HS 01/18/21 01/18/21 Unknown History Topiramate [Topamax] 150 mg PO BID 01/18/21 01/18/21 Unknown History Current Medications Generic Name Dose Route Start Last Admin Trade Name Freq PRN Reason Stop Dose Admin Acetaminophen 650 mg 01/17/21 17:31 Tylenol 325 Mg PO 02/16/21 17:30 Q4H PRN PRN PAIN AND/OR FEVER Aspirin 325 mg 01/17/21 22:00 01/18/21 09:52 Ecotrin 325 Mg PO 02/16/21 21:59 325 mg BID ESTEBAN Administration Baclofen 10 mg 01/17/21 22:00 01/18/21 09:53 Lioresal 10 Mg PO 02/16/21 21:59 10 mg BID ESTEBAN Administration Famotidine 20 mg 01/17/21 22:00 01/18/21 09:55 Pepcid 20 Mg Vial IV 02/16/21 21:59 20 mg Q12HT ESTEBAN Administration Sodium Chloride 1,000 mls @ 50 mls/hr 01/17/21 17:31 01/18/21 01:02 Sodium Chloride 0.9% 1000 Ml IV 02/16/21 17:30 50 mls/hr .Q20H ESTEBAN Administration Naproxen 250 mg 01/17/21 22:00 01/18/21 09:52 Naprosyn 500 Mg PO 02/16/21 21:59 250 mg BID ESTEBAN Administration Ondansetron HCl 4 mg 01/17/21 17:31 Zofran 4 Mg/2 Ml Vial IV 02/16/21 17:30 Q6H PRN PRN NAUSEA/VOMITING Oxycodone HCl 10 mg 01/17/21 21:23 01/17/21 22:12 Oxy-Ir 5 Mg PO 01/22/21 21:22 10 mg Q6H PRN PRN Administration PAIN Ropinirole HCl 1 mg 01/17/21 22:00 01/17/21 22:10 Requip 0.5 Mg PO 02/16/21 21:59 1 mg HS ESTEBAN Administration Topiramate 150 mg 01/17/21 22:00 01/18/21 09:55 Topiramate PO 02/16/21 21:59 150 mg BID ESTEBAN Administration Discontinued Medications Generic Name Dose Route Start Last Admin Trade Name Freq PRN Reason Stop Dose Admin Fentanyl Citrate 25 mcg 01/17/21 16:46 01/17/21 16:48 Sublimaze 100 Mcg/2 Ml IV 01/17/21 16:47 25 mcg STAT ONE Administration Fentanyl Citrate Confirm 01/17/21 16:46 Sublimaze 100 Mcg/2 Ml Administered 01/17/21 16:47 Dose 100 mcg .ROUTE .STK-MED ONE Sodium Chloride 500 mls @ 500 mls/hr 01/17/21 15:26 01/17/21 16:50 Sodium Chloride 0.9% 500 Ml IV 01/17/21 16:25 500 mls/hr .Q1H ONE Administration Sodium Chloride Confirm 01/17/21 16:49 Sodium Chloride 0.9% 500 Ml Administered 01/17/21 16:50 Dose 500 mls @ ud IV .STK-MED ONE Morphine Sulfate 4 mg 01/17/21 11:57 01/17/21 12:05 Morphine Sulfate 4 Mg Inj IM 01/17/21 11:58 4 mg STAT ONE Administration Morphine Sulfate Confirm 01/17/21 12:03 Morphine Sulfate 4 Mg Inj Administered 01/17/21 12:04 Dose 4 mg .ROUTE .STK-MED ONE Ondansetron HCl 4 mg 01/17/21 16:46 01/17/21 16:48 Zofran 4 Mg/2 Ml Vial IV 01/17/21 16:47 4 mg STAT ONE Administration Ondansetron HCl Confirm 01/17/21 16:46 Zofran 4 Mg/2 Ml Vial Administered 01/17/21 16:47 Dose 4 mg .ROUTE .STK-MED ONE Oxycodone HCl 5 - 10 mg 01/17/21 21:15 Oxy-Ir 5 Mg PO 01/22/21 21:14 Q4HPRN PRN PAIN Intake & Output (Last 24 hours) 01/15/21 01/16/21 01/17/21 01/18/21 11:59 11:59 11:59 11:59 Intake Total 1541 Output Total 200 Balance 1341 Weight 68.2 kg 66.6 kg Microbiology Results (Last 24 hours) 01/17/21 14:27 Blood Blood Culture Gram Stain - Pending 01/17/21 14:27 Blood Blood Culture - Pending 01/17/21 13:50 Blood Blood Culture Gram Stain - Pending 01/17/21 13:50 Blood Blood Culture - Pending Laboratory Results (Last 24 hours) 01/18/21 01/18/21 01/18/21 08:50 03:00 02:15 WBC RBC Hgb 9.1 L D Hct 30.4 L MCV MCH MCHC RDW Plt Count MPV Gran % Eos # (Auto) Absolute Lymphs (auto) Absolute Monos (auto) Lymphocytes % Monocytes % Eosinophils % Basophils % Absolute Granulocytes Basophils # Sodium 139 Potassium 4.0 Chloride 113 H Carbon Dioxide 22 Anion Gap 8.2 BUN 28 H Creatinine 0.75 Estimated GFR > 60.0 Glucose 93 Lactic Acid Calcium 8.0 L Total Bilirubin 0.20 AST 17 ALT 7 Alkaline Phosphatase 79 Serum Total Protein 5.4 L Albumin 2.8 L Urine Color Urine Appearance Urine pH Ur Specific [place] Urine Protein Urine Ketones Urine Blood Urine Nitrite Urine Bilirubin Urine Urobilinogen Ur Leukocyte Esterase Urine WBC (Auto) Urine RBC (Auto) U Hyaline Cast (Auto) U Epithel Cells (Auto) Urine Bacteria (Auto) Urine Mucus (Auto) Urine Culture Reflexed Urine Glucose Slides for Path Review ABO Group Rh Factor Antibody Screen Crossmatch COMPATIBLE 01/18/21 01/17/21 01/17/21 02:15 16:42 16:42 WBC 5.0 RBC 2.33 L Hgb 7.0 L Hct 23.9 L MCV 102.6 H MCH 30.0 MCHC 29.3 L RDW 15.6 H Plt Count 257 MPV 8.3 Gran % 63.8 Eos # (Auto) 0.30 Absolute Lymphs (auto) 1.05 Absolute Monos (auto) 0.44 Lymphocytes % 21.0 L Monocytes % 8.8 Eosinophils % 6.0 H Basophils % 0.4 Absolute Granulocytes 3.20 Basophils # 0.02 Sodium Potassium Chloride Carbon Dioxide Anion Gap BUN Creatinine Estimated GFR Glucose Lactic Acid Calcium Total Bilirubin AST ALT Alkaline Phosphatase Serum Total Protein Albumin Urine Color Urine Appearance Urine pH Ur Specific [place] Urine Protein Urine Ketones Urine Blood Urine Nitrite Urine Bilirubin Urine Urobilinogen Ur Leukocyte Esterase Urine WBC (Auto) Urine RBC (Auto) U Hyaline Cast (Auto) U Epithel Cells (Auto) Urine Bacteria (Auto) Urine Mucus (Auto) Urine Culture Reflexed Urine Glucose Slides for Path Review ABO Group O Rh Factor POSITIVE Antibody Screen NEGATIVE Crossmatch COMPATIBLE 01/17/21 01/17/21 01/17/21 14:18 13:55 13:50 WBC RBC Hgb Hct MCV MCH MCHC RDW Plt Count MPV Gran % Eos # (Auto) Absolute Lymphs (auto) Absolute Monos (auto) Lymphocytes % Monocytes % Eosinophils % Basophils % Absolute Granulocytes Basophils # Sodium 140 Potassium 4.1 Chloride 109 H Carbon Dioxide 24 Anion Gap 11.5 BUN 32 H Creatinine 0.94 Estimated GFR > 60.0 Glucose 85 Lactic Acid 0.5 Calcium 8.6 Total Bilirubin 0.30 AST 19 ALT 6 Alkaline Phosphatase 84 Serum Total Protein 6.3 Albumin 3.4 L Urine Color YELLOW Urine Appearance CLEAR Urine pH 6.0 Ur Specific [place] 1.027 Urine Protein NEGATIVE Urine Ketones NEGATIVE Urine Blood NEGATIVE Urine Nitrite NEGATIVE Urine Bilirubin NEGATIVE Urine Urobilinogen NEGATIVE Ur Leukocyte Esterase NEGATIVE Urine WBC (Auto) 0-2 Urine RBC (Auto) NONE U Hyaline Cast (Auto) 3-5 U Epithel Cells (Auto) RARE Urine Bacteria (Auto) NONE Urine Mucus (Auto) SLIGHT Urine Culture Reflexed NO Urine Glucose NEGATIVE Slides for Path Review ABO Group Rh Factor Antibody Screen Crossmatch 01/17/21 13:50 WBC 6.9 RBC 2.22 L Hgb 6.7 L* Hct 23.5 L MCV 105.9 H MCH 30.2 MCHC 28.5 L RDW 15.9 H Plt Count 303 MPV 9.1 Gran % 76.3 H Eos # (Auto) 0.25 Absolute Lymphs (auto) 0.96 L Absolute Monos (auto) 0.39 Lymphocytes % 14.0 L Monocytes % 5.7 Eosinophils % 3.6 Basophils % 0.4 Absolute Granulocytes 5.23 Basophils # 0.03 Sodium Potassium Chloride Carbon Dioxide Anion Gap BUN Creatinine Estimated GFR Glucose Lactic Acid Calcium Total Bilirubin AST ALT Alkaline Phosphatase Serum Total Protein Albumin Urine Color Urine Appearance Urine pH Ur Specific [place] Urine Protein Urine Ketones Urine Blood Urine Nitrite Urine Bilirubin Urine Urobilinogen Ur Leukocyte Esterase Urine WBC (Auto) Urine RBC (Auto) U Hyaline Cast (Auto) U Epithel Cells (Auto) Urine Bacteria (Auto) Urine Mucus (Auto) Urine Culture Reflexed Urine Glucose Slides for Path Review YES ABO Group Rh Factor Antibody Screen Crossmatch Orders (Last 24 hours) Category Date Time Status Bedrest ROUTINE Activity 01/17/21 17:31 Active Up With Assistance ROUTINE Activity 01/17/21 17:31 Active Code Status Order ROUTINE Care 01/17/21 17:31 Active Fall Protocol Q1H Care 01/17/21 17:31 Active IV Care Q6H Care 01/17/21 17:[address] in Observation ROUTINE Care 01/17/21 17:31 Active Andrew Nettles, Apply ROUTINE Care 01/17/21 17:31 Active Telemetry q6h Care 01/17/21 17:38 Active Weight,Daily 0600 Care 01/17/21 17:31 Active VENOUS UNILAT/LIMITED EXTREMIT [US] Stat Exams 01/17/21 11:56 Completed BLOOD COMPONENT REQUEST Stat Lab 01/17/21 16:42 Completed BLOOD COMPONENT REQUEST Urgent Lab 01/18/21 03:00 Completed BLOOD CULTURE Stat Lab 01/17/21 14:27 Received CBC W DIFF AM.LAB Lab 01/18/21 02:15 Completed CBC W DIFF Stat Lab 01/17/21 13:50 Completed CMP AM.LAB Lab 01/18/21 02:15 Completed CMP Stat Lab 01/17/21 13:50 Completed HEMOGLOBIN AND HEMATOCRIT Urgent Lab 01/18/21 08:50 Completed Lactic Acid Stat Lab 01/17/21 13:55 Completed TYPE AND SCREEN Stat Lab 01/17/21 16:42 Completed UA W/RFX UR CULTURE Stat Lab 01/17/21 14:18 Completed Acetaminophen 325 mg [Tylenol 325 mg] Med 01/17/21 17:31 Active 650 mg PO Q4H PRN PRN Aspirin EC 325 mg [Ecotrin 325 MG] Med 01/17/21 22:00 Active 325 mg PO BID Baclofen 10 mg [Lioresal 10 mg] Med 01/17/21 22:00 Active 10 mg PO BID Famotidine 20 mg Vial [Pepcid 20 MG VIAL] Med 01/17/21 22:00 Active 20 mg IV Q12HT Fentanyl Citrate 100 Mcg/2 ml* [Sublimaze 100 Mcg/2 ml* Med 01/17/21 16:46 Discontinued ] 100 mcg .ROUTE .STK-MED ONE Fentanyl Citrate 100 Mcg/2 ml* [Sublimaze 100 Mcg/2 ml* Med 01/17/21 16:46 Discontinued ] 25 mcg IV STAT ONE Morphine Sulfate 4 mg Inj Med 01/17/21 12:03 Discontinued 4 mg .ROUTE .STK-MED ONE Morphine Sulfate 4 mg Inj Med 01/17/21 11:57 Discontinued 4 mg IM STAT ONE NaCl 0.9% 1000 ml [Sodium Chloride 0.9% 1000 ML] 1,000 Med 01/17/21 17:31 Active ml IV 50 mls/hr NaCl 0.9% 500 ml [Sodium Chloride 0.9% 500 ML] 500 ml Med 01/17/21 15:26 Discontinued IV 500 mls/hr NaCl 0.9% 500 ml [Sodium Chloride 0.9% 500 ML] 500 ml Med 01/17/21 16:49 Discontinued IV UD Naproxen 500 mg [Naprosyn 500 MG] Med 01/17/21 22:00 Active 250 mg PO BID Ondansetron HCl 4 mg/2 ml [Zofran 4 MG/2 ML VIAL] Med 01/17/21 16:46 Discontinued 4 mg .ROUTE .STK-MED ONE Ondansetron HCl 4 mg/2 ml [Zofran 4 MG/2 ML VIAL] Med 01/17/21 17:31 Active 4 mg IV Q6H PRN PRN Ondansetron HCl 4 mg/2 ml [Zofran 4 MG/2 ML VIAL] Med 01/17/21 16:46 Discontinued 4 mg IV STAT ONE Oxycodone HCl 5 mg Ir [Oxy-IR 5 MG] Med 01/17/21 21:23 Active 10 mg PO Q6H PRN PRN Oxycodone HCl 5 mg Ir [Oxy-IR 5 MG] Med 01/17/21 21:15 Discontinued 5 - 10 mg PO Q4HPRN PRN Ropinirole HCl 0.5 mg [Requip 0.5 MG] Med 01/17/21 22:00 Active 1 mg PO HS Topiramate Med 01/17/21 22:00 Active 150 mg PO BID Patient Care Notes (Last 24 hours) 01/18/21 04:30 Nursing Note by River Maya Second unit of blood started 0420. Initialized on 01/18/21 04:30 - END OF NOTE 01/18/21 02:45 (created 01/18/21 03:06) SBAR Note by River Maya SITUATION I am calling about SARINA AVILA the patient's code status is Full Code The problem I am calling about is: Patient's hgb 7.0 after 1 unit of blood. Notified Dr Knox who ordered 1 more unit of blood. ASSESSMENT RECOMMENDATION Physician notified at [phone] New Orders received: Vital Signs (Last 4 hours) Temp Pulse Resp BP Pulse Ox 01/18/21 00:00 98.1 F 74 14 96/52 96 Diagnois, Code Status Date of Arrival on Unit 01/17/21 Admitted From Emergency Dept Diagnosis Symptomatic Anemia Resucitation Status Full Code Intake and Output 24 Hours 01/17/21 01/18/21 06:59 06:59 Weight 64.8 kg Physical Assessment Anxiety Level None,at ease,Awake,Calm Mental Status Alert Patient Orientation Person,Place,Time Coma Scale Total 15 Breath Sounds [Anterior/ Clear Posterior Bilateral Throughout ] Cardiac Rhythm-SCCH Sinus Rhythm Bowel Sounds [All Quadrants] Present,Active Abdomen Description Soft,Non-Tender Urine Appearance Not Assessed Skin Color Normal for Race Skin Temperature Warm Pain Scale (Last 24 Hours) Pain Intensity 5 Pain Intensity 5 Pain Intensity 5 Pain Intensity 5 Pain Intensity 4 Pain Intensity 4 Pain Intensity 4 Pain Intensity 4 Pain Intensity 4 Pain Intensity 4 Pain Intensity 4 Pain Intensity 4 Pain Intensity 4 Pain Intensity 4 Pain Intensity 5 Pain Intensity 5 Pain Intensity 0 Pain Intensity 5 Pain Intensity 6 Pain Intensity 6 Pain Intensity 5 Pain Intensity 5 PAST MEDICAL HISTORY Neurological History No Pertinent History ENT History No Pertinent History Endocrine Medical History Hypothyroidism Respiratory History Bronchitis,COPD Cardiac History Hypertension GI Medical History GERD,Ulcer History Renal Disease Reproductive Disorders No Pertinent History Pyscho-Social History No Pertinent History Communicable Disease No Pertinent History Diet Order (Last 24 Hours) 01/17/21 Breakfast House Regular Diet Lab Results (Last 24 Hours) 01/18/21 01/17/21 01/17/21 Range/Units 02:15 16:42 16:42 WBC 5.0 (4.0-10.5) K/mm3 RBC 2.33 L (4.1-5.4) M/mm3 Hgb 7.0 L (12.0-16.0) gm/dl Hct 23.9 L (35-47) % MCV 102.6 H (78-100) fl MCH 30.0 (26-32) pg MCHC 29.3 L (32-36) g/dl RDW 15.6 H (11.5-14.0) % Plt Count 257 (150-450) K/mm3 MPV 8.3 (7.5-11.0) fl Gran % 63.8 (36.0-66.0) % Eos # (Auto) 0.30 (0-0.5) Absolute Lymphs (auto) 1.05 (1.0-4.6) Absolute Monos (auto) 0.44 (0.0-1.3) Lymphocytes % 21.0 L (24.0-44.0) % Monocytes % 8.8 (0.0-12.0) % Eosinophils % 6.0 H (0.00-5.0) % Basophils % 0.4 (0.0-0.4) % Absolute Granulocytes 3.20 (1.4-6.9) Basophils # 0.02 (0-0.4) Sodium (137-145) mmol/L Potassium (3.5-5.1) mmol/L Chloride (98-107) mmol/L Carbon Dioxide (22-30) mmol/L Anion Gap (5-15) MEQ/L BUN (7-17) mg/dL Creatinine (0.52-1.04) mg/dL Estimated GFR ML/MIN Glucose (74-106) mg/dL Lactic Acid (0.4-2.0) Calcium (8.4-10.2) mg/dL Total Bilirubin (0.2-1.3) mg/dL AST (14-36) U/L ALT (0-35) U/L Alkaline Phosphatase (38-126) U/L Serum Total Protein (6.3-8.2) g/dL Albumin (3.5-5.0) g/dL Urine Color (YELLOW) Urine Appearance (CLEAR) Urine pH (5-6) Ur Specific [place] (1.005-1.025) Urine Protein (Negative) Urine Ketones (NEGATIVE) Urine Blood (0-5) Basil/ul Urine Nitrite (NEGATIVE) Urine Bilirubin (NEGATIVE) Urine Urobilinogen (0-1) mg/dL Ur Leukocyte Esterase (NEGATIVE) Urine WBC (Auto) (0-5) /HPF Urine RBC (Auto) (0-2) /HPF U Hyaline Cast (Auto) (0-2) /LPF U Epithel Cells (Auto) (FEW) /HPF Urine Bacteria (Auto) (NEGATIVE) /HPF Urine Mucus (Auto) (NEGATIVE) /HPF Urine Culture Reflexed (NO) Urine Glucose (NEGATIVE) mg/dL Slides for Path Review ABO Group O Rh Factor POSITIVE Antibody Screen NEGATIVE (NEGATIVE) Crossmatch COMPATIBLE (COMPATIBLE) 01/17/21 01/17/21 01/17/21 Range/Units 14:18 13:55 13:50 WBC (4.0-10.5) K/mm3 RBC (4.1-5.4) M/mm3 Hgb (12.0-16.0) gm/dl Hct (35-47) % MCV (78-100) fl MCH (26-32) pg MCHC (32-36) g/dl RDW (11.5-14.0) % Plt Count (150-450) K/mm3 MPV (7.5-11.0) fl Gran % (36.0-66.0) % Eos # (Auto) (0-0.5) Absolute Lymphs (auto) (1.0-4.6) Absolute Monos (auto) (0.0-1.3) Lymphocytes % (24.0-44.0) % Monocytes % (0.0-12.0) % Eosinophils % (0.00-5.0) % Basophils % (0.0-0.4) % Absolute Granulocytes (1.4-6.9) Basophils # (0-0.4) Sodium 140 (137-145) mmol/L Potassium 4.1 (3.5-5.1) mmol/L Chloride 109 H (98-107) mmol/L Carbon Dioxide 24 (22-30) mmol/L Anion Gap 11.5 (5-15) MEQ/L BUN 32 H (7-17) mg/dL Creatinine 0.94 (0.52-1.04) mg/dL Estimated GFR > 60.0 ML/MIN Glucose 85 (74-106) mg/dL Lactic Acid 0.5 (0.4-2.0) Calcium 8.6 (8.4-10.2) mg/dL Total Bilirubin 0.30 (0.2-1.3) mg/dL AST 19 (14-36) U/L ALT 6 (0-35) U/L Alkaline Phosphatase 84 (38-126) U/L Serum Total Protein 6.3 (6.3-8.2) g/dL Albumin 3.4 L (3.5-5.0) g/dL Urine Color YELLOW (YELLOW) Urine Appearance CLEAR (CLEAR) Urine pH 6.0 (5-6) Ur Specific [place] 1.027 (1.005-1.025) Urine Protein NEGATIVE (Negative) Urine Ketones NEGATIVE (NEGATIVE) Urine Blood NEGATIVE (0-5) Basil/ul Urine Nitrite NEGATIVE (NEGATIVE) Urine Bilirubin NEGATIVE (NEGATIVE) Urine Urobilinogen NEGATIVE (0-1) mg/dL Ur Leukocyte Esterase NEGATIVE (NEGATIVE) Urine WBC (Auto) 0-2 (0-5) /HPF Urine RBC (Auto) NONE (0-2) /HPF U Hyaline Cast (Auto) 3-5 (0-2) /LPF U Epithel Cells (Auto) RARE (FEW) /HPF Urine Bacteria (Auto) NONE (NEGATIVE) /HPF Urine Mucus (Auto) SLIGHT (NEGATIVE) /HPF Urine Culture Reflexed NO (NO) Urine Glucose NEGATIVE (NEGATIVE) mg/dL Slides for Path Review ABO Group Rh Factor Antibody Screen (NEGATIVE) Crossmatch (COMPATIBLE) 01/17/21 Range/Units 13:50 WBC 6.9 (4.0-10.5) K/mm3 RBC 2.22 L (4.1-5.4) M/mm3 Hgb 6.7 L* (12.0-16.0) gm/dl Hct 23.5 L (35-47) % MCV 105.9 H (78-100) fl MCH 30.2 (26-32) pg MCHC 28.5 L (32-36) g/dl RDW 15.9 H (11.5-14.0) % Plt Count 303 (150-450) K/mm3 MPV 9.1 (7.5-11.0) fl Gran % 76.3 H (36.0-66.0) % Eos # (Auto) 0.25 (0-0.5) Absolute Lymphs (auto) 0.96 L (1.0-4.6) Absolute Monos (auto) 0.39 (0.0-1.3) Lymphocytes % 14.0 L (24.0-44.0) % Monocytes % 5.7 (0.0-12.0) % Eosinophils % 3.6 (0.00-5.0) % Basophils % 0.4 (0.0-0.4) % Absolute Granulocytes 5.23 (1.4-6.9) Basophils # 0.03 (0-0.4) Sodium (137-145) mmol/L Potassium (3.5-5.1) mmol/L Chloride (98-107) mmol/L Carbon Dioxide (22-30) mmol/L Anion Gap (5-15) MEQ/L BUN (7-17) mg/dL Creatinine (0.52-1.04) mg/dL Estimated GFR ML/MIN Glucose (74-106) mg/dL Lactic Acid (0.4-2.0) Calcium (8.4-10.2) mg/dL Total Bilirubin (0.2-1.3) mg/dL AST (14-36) U/L ALT (0-35) U/L Alkaline Phosphatase (38-126) U/L Serum Total Protein (6.3-8.2) g/dL Albumin (3.5-5.0) g/dL Urine Color (YELLOW) Urine Appearance (CLEAR) Urine pH (5-6) Ur Specific [place] (1.005-1.025) Urine Protein (Negative) Urine Ketones (NEGATIVE) Urine Blood (0-5) Basil/ul Urine Nitrite (NEGATIVE) Urine Bilirubin (NEGATIVE) Urine Urobilinogen (0-1) mg/dL Ur Leukocyte Esterase (NEGATIVE) Urine WBC (Auto) (0-5) /HPF Urine RBC (Auto) (0-2) /HPF U Hyaline Cast (Auto) (0-2) /LPF U Epithel Cells (Auto) (FEW) /HPF Urine Bacteria (Auto) (NEGATIVE) /HPF Urine Mucus (Auto) (NEGATIVE) /HPF Urine Culture Reflexed (NO) Urine Glucose (NEGATIVE) mg/dL Slides for Path Review YES ABO Group Rh Factor Antibody Screen (NEGATIVE) Crossmatch (COMPATIBLE) Lactic Acid (Last 24 Hours) 01/17/21 13:55 Lactic Acid 0.5 Microbiology Results (Last 24 Hours) 01/17/21 14:27 Blood Culture Gram Stain - Pending Blood Blood Culture - Pending 01/17/21 13:50 Blood Culture Gram Stain - Pending Blood Blood Culture - Pending Orders (Last 24 Hours) Category Date Time Status Bedrest ROUTINE Activity 01/17/21 17:31 Active Up With Assistance ROUTINE Activity 01/17/21 17:31 Active Code Status Order ROUTINE Care 01/17/21 17:31 Active Fall Protocol ROUTINE Care 01/17/21 17:31 Active IV Care Q6H Care 01/17/21 17:[address] in Observation ROUTINE Care 01/17/21 17:31 Active Padmaja Andino ROUTINE Care 01/17/21 17:31 Active Telemetry q6h Care 01/17/21 17:38 Active Weight,Daily 0600 Care 01/17/21 17:31 Active House Regular Diet Diet 01/17/21 Breakfast Active BLOOD COMPONENT REQUEST Urgent Lab 01/18/21 03:00 Ordered BLOOD CULTURE Stat Lab 01/17/21 14:27 Received CBC W DIFF AM.LAB Lab 01/18/21 02:15 Results CMP AM.LAB Lab 01/18/21 02:15 Received Acetaminophen 325 mg [Tylenol 325 mg] Med 01/17/21 17:31 Ordered 650 mg PO Q4H PRN PRN Aspirin EC 325 mg [Ecotrin 325 MG] Med 01/17/21 22:00 Ordered 325 mg PO BID Baclofen 10 mg [Lioresal 10 mg] Med 01/17/21 22:00 Ordered 10 mg PO BID Famotidine 20 mg Vial [Pepcid 20 MG VIAL] Med 01/17/21 22:00 Ordered 20 mg IV Q12HT NaCl 0.9% 1000 ml [Sodium Chloride 0.9% 1000 ML] 1,000 Med 01/17/21 17:31 Ordered ml IV 50 mls/hr Naproxen 500 mg [Naprosyn 500 MG] Med 01/17/21 22:00 Ordered 250 mg PO BID Ondansetron HCl 4 mg/2 ml [Zofran 4 MG/2 ML VIAL] Med 01/17/21 17:31 Ordered 4 mg IV Q6H PRN PRN Oxycodone HCl 5 mg Ir [Oxy-IR 5 MG] Med 01/17/21 21:23 Ordered 10 mg PO Q6H PRN PRN Ropinirole HCl 0.5 mg [Requip 0.5 MG] Med 01/17/21 22:00 Ordered 1 mg PO HS Topiramate Med 01/17/21 22:00 Ordered 150 mg PO BID Nursing Notes (Last 12 hours) 01/17/21 22:43 Nursing Note by River Maya Blood started at 2205 Initialized on 01/17/21 22:43 - END OF NOTE 01/17/21 21:20 Nursing Note by Hilda Mejia Pt takes Cefadroxil 500 mg PO bid, which we do not carry. Spoke with Chicho from pharmacy and Ceftin 500 mg would be compatible but would have to have dr's permission to use. Pt is taking abx for previous hip surgeries, so prescription came from surgeon. Spoke with nurse and pt will try to have someone bring in her home med. Pt is also taking Naproxen 220 mg bid. We only carry 375 mg and 500 mg. Chicho from pharmacy advised to cut a 500 mg in half Initialized on 01/17/21 21:20 - END OF NOTE 01/17/21 20:40 SBAR Note by River Maya SITUATION I am calling about SARINA AVILA the patient's code status is Full Code The problem I am calling about is: Calling regarding home meds, he said to continue all home meds. Pt has 20 gauge EJ that will not run without alarming almost continuously. Pt also has 22 G in left FA. Pt is very difficulty to obtain IV access on. Asked if ok to run blood through 22 gauge. He said that it is ok to give blood through the 22G. ASSESSMENT RECOMMENDATION Physician notified at 2039 New Orders received: Vital Signs (Last 4 hours) Temp Pulse Resp BP Pulse Ox 01/17/21 18:30 99 01/17/21 18:04 98.5 F 82 16 122/56 95 01/17/21 17:21 98.5 F 83 22 122/56 95 01/17/21 17:04 97.9 F 79 20 114/68 98 Diagnois, Code Status Date of Arrival on Unit 01/17/21 Admitted From Emergency Dept Diagnosis Symptomatic Anemia Resucitation Status Full Code Intake and Output 24 Hours 01/17/21 01/18/21 06:59 06:59 Weight 64.8 kg Physical Assessment Mental Status Alert Patient Orientation Person,Place,Time Coma Scale Total 15 Breath Sounds [Anterior/ Clear Posterior Bilateral Throughout ] Bowel Sounds [All Quadrants] Active Abdomen Description Soft,Non-Tender Urine Appearance Not Assessed Skin Color Pale Skin Temperature Warm Pain Scale (Last 24 Hours) Pain Intensity 4 Pain Intensity 4 Pain Intensity 4 Pain Intensity 4 Pain Intensity 4 Pain Intensity 4 Pain Intensity 4 Pain Intensity 4 Pain Intensity 4 Pain Intensity 4 Pain Intensity 5 Pain Intensity 5 Pain Intensity 0 Pain Intensity 5 Pain Intensity 6 Pain Intensity 6 Pain Intensity 5 Pain Intensity 5 PAST MEDICAL HISTORY Neurological History No Pertinent History ENT History No Pertinent History Endocrine Medical History Hypothyroidism Respiratory History Bronchitis,COPD Cardiac History Hypertension GI Medical History GERD,Ulcer History Renal Disease Reproductive Disorders No Pertinent History Pyscho-Social History No Pertinent History Communicable Disease No Pertinent History Diet Order (Last 24 Hours) 01/17/21 Breakfast House Regular Diet Lab Results (Last 24 Hours) 01/17/21 01/17/21 01/17/21 Range/Units 16:42 16:42 14:18 WBC (4.0-10.5) K/mm3 RBC (4.1-5.4) M/mm3 Hgb (12.0-16.0) gm/dl Hct (35-47) % MCV (78-100) fl MCH (26-32) pg MCHC (32-36) g/dl RDW (11.5-14.0) % Plt Count (150-450) K/mm3 MPV (7.5-11.0) fl Gran % (36.0-66.0) % Eos # (Auto) (0-0.5) Absolute Lymphs (auto) (1.0-4.6) Absolute Monos (auto) (0.0-1.3) Lymphocytes % (24.0-44.0) % Monocytes % (0.0-12.0) % Eosinophils % (0.00-5.0) % Basophils % (0.0-0.4) % Absolute Granulocytes (1.4-6.9) Basophils # (0-0.4) Sodium (137-145) mmol/L Potassium (3.5-5.1) mmol/L Chloride (98-107) mmol/L Carbon Dioxide (22-30) mmol/L Anion Gap (5-15) MEQ/L BUN (7-17) mg/dL Creatinine (0.52-1.04) mg/dL Estimated GFR ML/MIN Glucose (74-106) mg/dL Lactic Acid (0.4-2.0) Calcium (8.4-10.2) mg/dL Total Bilirubin (0.2-1.3) mg/dL AST (14-36) U/L ALT (0-35) U/L Alkaline Phosphatase (38-126) U/L Serum Total Protein (6.3-8.2) g/dL Albumin (3.5-5.0) g/dL Urine Color YELLOW (YELLOW) Urine Appearance CLEAR (CLEAR) Urine pH 6.0 (5-6) Ur Specific [place] 1.027 (1.005-1.025) Urine Protein NEGATIVE (Negative) Urine Ketones NEGATIVE (NEGATIVE) Urine Blood NEGATIVE (0-5) Basil/ul Urine Nitrite NEGATIVE (NEGATIVE) Urine Bilirubin NEGATIVE (NEGATIVE) Urine Urobilinogen NEGATIVE (0-1) mg/dL Ur Leukocyte Esterase NEGATIVE (NEGATIVE) Urine WBC (Auto) 0-2 (0-5) /HPF Urine RBC (Auto) NONE (0-2) /HPF U Hyaline Cast (Auto) 3-5 (0-2) /LPF U Epithel Cells (Auto) RARE (FEW) /HPF Urine Bacteria (Auto) NONE (NEGATIVE) /HPF Urine Mucus (Auto) SLIGHT (NEGATIVE) /HPF Urine Culture Reflexed NO (NO) Urine Glucose NEGATIVE (NEGATIVE) mg/dL Slides for Path Review ABO Group O Rh Factor POSITIVE Antibody Screen NEGATIVE (NEGATIVE) Crossmatch COMPATIBLE (COMPATIBLE) 01/17/21 01/17/21 01/17/21 Range/Units 13:55 13:50 13:50 WBC 6.9 (4.0-10.5) K/mm3 RBC 2.22 L (4.1-5.4) M/mm3 Hgb 6.7 L* (12.0-16.0) gm/dl Hct 23.5 L (35-47) % MCV 105.9 H (78-100) fl MCH 30.2 (26-32) pg MCHC 28.5 L (32-36) g/dl RDW 15.9 H (11.5-14.0) % Plt Count 303 (150-450) K/mm3 MPV 9.1 (7.5-11.0) fl Gran % 76.3 H (36.0-66.0) % Eos # (Auto) 0.25 (0-0.5) Absolute Lymphs (auto) 0.96 L (1.0-4.6) Absolute Monos (auto) 0.39 (0.0-1.3) Lymphocytes % 14.0 L (24.0-44.0) % Monocytes % 5.7 (0.0-12.0) % Eosinophils % 3.6 (0.00-5.0) % Basophils % 0.4 (0.0-0.4) % Absolute Granulocytes 5.23 (1.4-6.9) Basophils # 0.03 (0-0.4) Sodium 140 (137-145) mmol/L Potassium 4.1 (3.5-5.1) mmol/L Chloride 109 H (98-107) mmol/L Carbon Dioxide 24 (22-30) mmol/L Anion Gap 11.5 (5-15) MEQ/L BUN 32 H (7-17) mg/dL Creatinine 0.94 (0.52-1.04) mg/dL Estimated GFR > 60.0 ML/MIN Glucose 85 (74-106) mg/dL Lactic Acid 0.5 (0.4-2.0) Calcium 8.6 (8.4-10.2) mg/dL Total Bilirubin 0.30 (0.2-1.3) mg/dL AST 19 (14-36) U/L ALT 6 (0-35) U/L Alkaline Phosphatase 84 (38-126) U/L Serum Total Protein 6.3 (6.3-8.2) g/dL Albumin 3.4 L (3.5-5.0) g/dL Urine Color (YELLOW) Urine Appearance (CLEAR) Urine pH (5-6) Ur Specific [place] (1.005-1.025) Urine Protein (Negative) Urine Ketones (NEGATIVE) Urine Blood (0-5) Basil/ul Urine Nitrite (NEGATIVE) Urine Bilirubin (NEGATIVE) Urine Urobilinogen (0-1) mg/dL Ur Leukocyte Esterase (NEGATIVE) Urine WBC (Auto) (0-5) /HPF Urine RBC (Auto) (0-2) /HPF U Hyaline Cast (Auto) (0-2) /LPF U Epithel Cells (Auto) (FEW) /HPF Urine Bacteria (Auto) (NEGATIVE) /HPF Urine Mucus (Auto) (NEGATIVE) /HPF Urine Culture Reflexed (NO) Urine Glucose (NEGATIVE) mg/dL Slides for Path Review YES ABO Group Rh Factor Antibody Screen (NEGATIVE) Crossmatch (COMPATIBLE) Lactic Acid (Last 24 Hours) 01/17/21 13:55 Lactic Acid 0.5 Microbiology Results (Last 24 Hours) 01/17/21 14:27 Blood Culture Gram Stain - Pending Blood Blood Culture - Pending 01/17/21 13:50 Blood Culture Gram Stain - Pending Blood Blood Culture - Pending Orders (Last 24 Hours) Category Date Time Status Bedrest ROUTINE Activity 01/17/21 17:31 Active Up With Assistance ROUTINE Activity 01/17/21 17:31 Active Code Status Order ROUTINE Care 01/17/21 17:31 Active Fall Protocol ROUTINE Care 01/17/21 17:31 Active IV Care Q6H Care 01/17/21 17:[address] in Observation ROUTINE Care 01/17/21 17:31 Active Padmaja Andino ROUTINE Care 01/17/21 17:31 Active Telemetry q6h Care 01/17/21 17:38 Active Weight,Daily 0600 Care 01/17/21 17:31 Active House Regular Diet Diet 01/17/21 Breakfast Active BLOOD CULTURE Stat Lab 01/17/21 14:27 Received CBC W DIFF AM.LAB Lab 01/18/21 04:00 Ordered CMP AM.LAB Lab 01/18/21 04:00 Ordered HEMOGLOBIN AND HEMATOCRIT Stat Lab 01/17/21 19:29 Ordered Acetaminophen 325 mg [Tylenol 325 mg] Med 01/17/21 17:31 Ordered 650 mg PO Q4H PRN PRN Famotidine 20 mg Vial [Pepcid 20 MG VIAL] Med 01/17/21 22:00 Ordered 20 mg IV Q12HT NaCl 0.9% 1000 ml [Sodium Chloride 0.9% 1000 ML] 1,000 Med 01/17/21 17:31 Ordered ml IV 50 mls/hr Ondansetron HCl 4 mg/2 ml [Zofran 4 MG/2 ML VIAL] Med 01/17/21 17:31 Or dered 4 mg IV Q6H PRN PRN Active Visit Medications Generic Name Dose Route Start Last Admin Trade Name Freq PRN Reason Stop Dose Admin Acetaminophen 650 mg 01/17/21 17:31 Tylenol 325 Mg PO 02/16/21 17:30 Q4H PRN PRN PAIN AND/OR FEVER Famotidine 20 mg 01/17/21 22:00 Pepcid 20 Mg Vial IV 02/16/21 21:59 Q12HT ESTEBAN Sodium Chloride 1,000 mls @ 50 mls/hr 01/17/21 17:31 Sodium Chloride 0.9% 1000 Ml IV 02/16/21 17:30 .Q20H ESTEBAN Ondansetron HCl 4 mg 01/17/21 17:31 Zofran 4 Mg/2 Ml Vial IV 02/16/21 17:30 Q6H PRN PRN NAUSEA/VOMITING Home Medications Medication Instructions Recorded Confirmed Last Taken Type Aspirin EC 325 mg [Ecotrin 325 325 mg PO DAILY 01/17/21 01/17/21 Unknown History MG] Baclofen 10 mg PO DAILY 01/17/21 01/17/21 Unknown History Fluconazole [Diflucan ] 150 mg PO DAILY 01/17/21 01/17/21 Unknown History Oxycodone HCl 10 mg PO DAILY 01/17/21 01/17/21 Unknown History cefaDROXiL [Cefadroxil] 500 mg PO DAILY 01/17/21 01/17/21 Unknown History Initialized on 01/17/21 20:40 - END OF NOTE Active Visit Medications Generic Name Dose Route Start Last Admin Trade Name Freq PRN Reason Stop Dose Admin Acetaminophen 650 mg 01/17/21 17:31 Tylenol 325 Mg PO 02/16/21 17:30 Q4H PRN PRN PAIN AND/OR FEVER Aspirin 325 mg 01/17/21 22:00 01/17/21 22:10 Ecotrin 325 Mg PO 02/16/21 21:59 325 mg BID ESTEBAN Administration Baclofen 10 mg 01/17/21 22:00 01/17/21 21:56 Lioresal 10 Mg PO 02/16/21 21:59 10 mg BID ESTEBAN Administration Famotidine 20 mg 01/17/21 22:00 01/18/21 01:32 Pepcid 20 Mg Vial IV 02/16/21 21:59 20 mg Q12HT ESTEBAN Administration Sodium Chloride 1,000 mls @ 50 mls/hr 01/17/21 17:31 01/18/21 01:02 Sodium Chloride 0.9% 1000 Ml IV 02/16/21 17:30 50 mls/hr .Q20H ESTEBAN Administration Naproxen 250 mg 01/17/21 22:00 01/17/21 22:07 Naprosyn 500 Mg PO 02/16/21 21:59 250 mg BID ESTEBAN Administration Ondansetron HCl 4 mg 01/17/21 17:31 Zofran 4 Mg/2 Ml Vial IV 02/16/21 17:30 Q6H PRN PRN NAUSEA/VOMITING Oxycodone HCl 10 mg 01/17/21 21:23 01/17/21 22:12 Oxy-Ir 5 Mg PO 01/22/21 21:22 10 mg Q6H PRN PRN Administration PAIN Ropinirole HCl 1 mg 01/17/21 22:00 01/17/21 22:10 Requip 0.5 Mg PO 02/16/21 21:59 1 mg HS ESTEBAN Administration Topiramate 150 mg 01/17/21 22:00 01/17/21 22:11 Topiramate PO 02/16/21 21:59 150 mg BID ESTEBAN Administration Home Medications Medication Instructions Recorded Confirmed Last Taken Type Aspirin EC 325 mg [Ecotrin 325 325 mg PO BID 01/17/21 01/18/21 Unknown History MG] Baclofen 10 mg PO BID 01/17/21 01/18/21 Unknown History Fluconazole [Diflucan ] 150 mg PO UD 01/17/21 01/18/21 Unknown History Oxycodone HCl 10 mg PO Q6H PRN PRN 01/17/21 01/18/21 Unknown History cefaDROXiL [Cefadroxil] 500 mg PO BID 01/17/21 01/18/21 Unknown History Acetaminophen 500 mg [Tylenol 500 mg PO TID PRN PRN 01/18/21 01/18/21 Unknown History Extra Strength 500 mg] Ergocalciferol (Vitamin D2) 50,000 unit PO Q7D 01/18/21 01/18/21 01/12/21 History [Vitamin D2] Levothyroxine Sodium 75 Mcg 75 mcg PO DAILY 01/18/21 01/18/21 Unknown History [Synthroid 75 Mcg] Naproxen Sodium 220 mg [Aleve 220 mg PO BID 01/18/21 01/18/21 Unknown History 220 MG] Omeprazole 40 mg PO DAILY 01/18/21 01/18/21 Unknown History Ropinirole HCl [Requip] 1 mg PO HS 01/18/21 01/18/21 Unknown History Topiramate [Topamax] 150 mg PO BID 01/18/21 01/18/21 Unknown History Initialized on 01/18/21 03:06 - END OF NOTE 01/17/21 22:43 Nursing Note by River Maya Blood started at 2205 Initialized on 01/17/21 22:43 - END OF NOTE 01/17/21 21:20 Nursing Note by Hilda Mejia Pt takes Cefadroxil 500 mg PO bid, which we do not carry. Spoke with Chicho from pharmacy and Ceftin 500 mg would be compatible but would have to have dr's permission to use. Pt is taking abx for previous hip surgeries, so prescription came from surgeon. Spoke with nurse and pt will try to have someone bring in her home med. Pt is also taking Naproxen 220 mg bid. We only carry 375 mg and 500 mg. Chicho from pharmacy advised to cut a 500 mg in half Initialized on 01/17/21 21:20 - END OF NOTE 01/17/21 20:40 SBAR Note by River Maya SITUATION I am calling about SARINA AVILA the patient's code status is Full Code The problem I am calling about is: Calling regarding home meds, he said to continue all home meds. Pt has 20 gauge EJ that will not run without alarming almost continuously. Pt also has 22 G in left FA. Pt is very difficulty to obtain IV access on. Asked if ok to run blood through 22 gauge. He said that it is ok to give blood through the 22G. ASSESSMENT RECOMMENDATION Physician notified at 2039 New Orders received: Vital Signs (Last 4 hours) Temp Pulse Resp BP Pulse Ox 01/17/21 18:30 99 01/17/21 18:04 98.5 F 82 16 122/56 95 01/17/21 17:21 98.5 F 83 22 122/56 95 01/17/21 17:04 97.9 F 79 20 114/68 98 Diagnois, Code Status Date of Arrival on Unit 01/17/21 Admitted From Emergency Dept Diagnosis Symptomatic Anemia Resucitation Status Full Code Intake and Output 24 Hours 01/17/21 01/18/21 06:59 06:59 Weight 64.8 kg Physical Assessment Mental Status Alert Patient Orientation Person,Place,Time Coma Scale Total 15 Breath Sounds [Anterior/ Clear Posterior Bilateral Throughout ] Bowel Sounds [All Quadrants] Active Abdomen Description Soft,Non-Tender Urine Appearance Not Assessed Skin Color Pale Skin Temperature Warm Pain Scale (Last 24 Hours) Pain Intensity 4 Pain Intensity 4 Pain Intensity 4 Pain Intensity 4 Pain Intensity 4 Pain Intensity 4 Pain Intensity 4 Pain Intensity 4 Pain Intensity 4 Pain Intensity 4 Pain Intensity 5 Pain Intensity 5 Pain Intensity 0 Pain Intensity 5 Pain Intensity 6 Pain Intensity 6 Pain Intensity 5 Pain Intensity 5 PAST MEDICAL HISTORY Neurological History No Pertinent History ENT History No Pertinent History Endocrine Medical History Hypothyroidism Respiratory History Bronchitis,COPD Cardiac History Hypertension GI Medical History GERD,Ulcer History Renal Disease Reproductive Disorders No Pertinent History Pyscho-Social History No Pertinent History Communicable Disease No Pertinent History Diet Order (Last 24 Hours) 01/17/21 Breakfast House Regular Diet Lab Results (Last 24 Hours) 01/17/21 01/17/21 01/17/21 Range/Units 16:42 16:42 14:18 WBC (4.0-10.5) K/mm3 RBC (4.1-5.4) M/mm3 Hgb (12.0-16.0) gm/dl Hct (35-47) % MCV (78-100) fl MCH (26-32) pg MCHC (32-36) g/dl RDW (11.5-14.0) % Plt Count (150-450) K/mm3 MPV (7.5-11.0) fl Gran % (36.0-66.0) % Eos # (Auto) (0-0.5) Absolute Lymphs (auto) (1.0-4.6) Absolute Monos (auto) (0.0-1.3) Lymphocytes % (24.0-44.0) % Monocytes % (0.0-12.0) % Eosinophils % (0.00-5.0) % Basophils % (0.0-0.4) % Absolute Granulocytes (1.4-6.9) Basophils # (0-0.4) Sodium (137-145) mmol/L Potassium (3.5-5.1) mmol/L Chloride (98-107) mmol/L Carbon Dioxide (22-30) mmol/L Anion Gap (5-15) MEQ/L BUN (7-17) mg/dL Creatinine (0.52-1.04) mg/dL Estimated GFR ML/MIN Glucose (74-106) mg/dL Lactic Acid (0.4-2.0) Calcium (8.4-10.2) mg/dL Total Bilirubin (0.2-1.3) mg/dL AST (14-36) U/L ALT (0-35) U/L Alkaline Phosphatase (38-126) U/L Serum Total Protein (6.3-8.2) g/dL Albumin (3.5-5.0) g/dL Urine Color YELLOW (YELLOW) Urine Appearance CLEAR (CLEAR) Urine pH 6.0 (5-6) Ur Specific [place] 1.027 (1.005-1.025) Urine Protein NEGATIVE (Negative) Urine Ketones NEGATIVE (NEGATIVE) Urine Blood NEGATIVE (0-5) Basil/ul Urine Nitrite NEGATIVE (NEGATIVE) Urine Bilirubin NEGATIVE (NEGATIVE) Urine Urobilinogen NEGATIVE (0-1) mg/dL Ur Leukocyte Esterase NEGATIVE (NEGATIVE) Urine WBC (Auto) 0-2 (0-5) /HPF Urine RBC (Auto) NONE (0-2) /HPF U Hyaline Cast (Auto) 3-5 (0-2) /LPF U Epithel Cells (Auto) RARE (FEW) /HPF Urine Bacteria (Auto) NONE (NEGATIVE) /HPF Urine Mucus (Auto) SLIGHT (NEGATIVE) /HPF Urine Culture Reflexed NO (NO) Urine Glucose NEGATIVE (NEGATIVE) mg/dL Slides for Path Review ABO Group O Rh Factor POSITIVE Antibody Screen NEGATIVE (NEGATIVE) Crossmatch COMPATIBLE (COMPATIBLE) 01/17/21 01/17/21 01/17/21 Range/Units 13:55 13:50 13:50 WBC 6.9 (4.0-10.5) K/mm3 RBC 2.22 L (4.1-5.4) M/mm3 Hgb 6.7 L* (12.0-16.0) gm/dl Hct 23.5 L (35-47) % MCV 105.9 H (78-100) fl MCH 30.2 (26-32) pg MCHC 28.5 L (32-36) g/dl RDW 15.9 H (11.5-14.0) % Plt Count 303 (150-450) K/mm3 MPV 9.1 (7.5-11.0) fl Gran % 76.3 H (36.0-66.0) % Eos # (Auto) 0.25 (0-0.5) Absolute Lymphs (auto) 0.96 L (1.0-4.6) Absolute Monos (auto) 0.39 (0.0-1.3) Lymphocytes % 14.0 L (24.0-44.0) % Monocytes % 5.7 (0.0-12.0) % Eosinophils % 3.6 (0.00-5.0) % Basophils % 0.4 (0.0-0.4) % Absolute Granulocytes 5.23 (1.4-6.9) Basophils # 0.03 (0-0.4) Sodium 140 (137-145) mmol/L Potassium 4.1 (3.5-5.1) mmol/L Chloride 109 H (98-107) mmol/L Carbon Dioxide 24 (22-30) mmol/L Anion Gap 11.5 (5-15) MEQ/L BUN 32 H (7-17) mg/dL Creatinine 0.94 (0.52-1.04) mg/dL Estimated GFR > 60.0 ML/MIN Glucose 85 (74-106) mg/dL Lactic Acid 0.5 (0.4-2.0) Calcium 8.6 (8.4-10.2) mg/dL Total Bilirubin 0.30 (0.2-1.3) mg/dL AST 19 (14-36) U/L ALT 6 (0-35) U/L Alkaline Phosphatase 84 (38-126) U/L Serum Total Protein 6.3 (6.3-8.2) g/dL Albumin 3.4 L (3.5-5.0) g/dL Urine Color (YELLOW) Urine Appearance (CLEAR) Urine pH (5-6) Ur Specific [place] (1.005-1.025) Urine Protein (Negative) Urine Ketones (NEGATIVE) Urine Blood (0-5) Basil/ul Urine Nitrite (NEGATIVE) Urine Bilirubin (NEGATIVE) Urine Urobilinogen (0-1) mg/dL Ur Leukocyte Esterase (NEGATIVE) Urine WBC (Auto) (0-5) /HPF Urine RBC (Auto) (0-2) /HPF U Hyaline Cast (Auto) (0-2) /LPF U Epithel Cells (Auto) (FEW) /HPF Urine Bacteria (Auto) (NEGATIVE) /HPF Urine Mucus (Auto) (NEGATIVE) /HPF Urine Culture Reflexed (NO) Urine Glucose (NEGATIVE) mg/dL Slides for Path Review YES ABO Group Rh Factor Antibody Screen (NEGATIVE) Crossmatch (COMPATIBLE) Lactic Acid (Last 24 Hours) 01/17/21 13:55 Lactic Acid 0.5 Microbiology Results (Last 24 Hours) 01/17/21 14:27 Blood Culture Gram Stain - Pending Blood Blood Culture - Pending 01/17/21 13:50 Blood Culture Gram Stain - Pending Blood Blood Culture - Pending Orders (Last 24 Hours) Category Date Time Status Bedrest ROUTINE Activity 01/17/21 17:31 Active Up With Assistance ROUTINE Activity 01/17/21 17:31 Active Code Status Order ROUTINE Care 01/17/21 17:31 Active Fall Protocol ROUTINE Care 01/17/21 17:31 Active IV Care Q6H Care 01/17/21 17:[address] in Observation ROUTINE Care 01/17/21 17:31 Active Andrew Tho, Apply ROUTINE Care 01/17/21 17:31 Active Telemetry q6h Care 01/17/21 17:38 Active Weight,Daily 0600 Care 01/17/21 17:31 Active House Regular Diet Diet 01/17/21 Breakfast Active BLOOD CULTURE Stat Lab 01/17/21 14:27 Received CBC W DIFF AM.LAB Lab 01/18/21 04:00 Ordered CMP AM.LAB Lab 01/18/21 04:00 Ordered HEMOGLOBIN AND HEMATOCRIT Stat Lab 01/17/21 19:29 Ordered Acetaminophen 325 mg [Tylenol 325 mg] Med 01/17/21 17:31 Ordered 650 mg PO Q4H PRN PRN Famotidine 20 mg Vial [Pepcid 20 MG VIAL] Med 01/17/21 22:00 Ordered 20 mg IV Q12HT NaCl 0.9% 1000 ml [Sodium Chloride 0.9% 1000 ML] 1,000 Med 01/17/21 17:31 Ordered ml IV 50 mls/hr Ondansetron HCl 4 mg/2 ml [Zofran 4 MG/2 ML VIAL] Med 01/17/21 17:31 Ordered 4 mg IV Q6H PRN PRN Active Visit Medications Generic Name Dose Route Start Last Admin Trade Name Freq PRN Reason Stop Dose Admin Acetaminophen 650 mg 01/17/21 17:31 Tylenol 325 Mg PO 02/16/21 17:30 Q4H PRN PRN PAIN AND/OR FEVER Famotidine 20 mg 01/17/21 22:00 Pepcid 20 Mg Vial IV 02/16/21 21:59 Q12HT ESTEBAN Sodium Chloride 1,000 mls @ 50 mls/hr 01/17/21 17:31 Sodium Chloride 0.9% 1000 Ml IV 02/16/21 17:30 .Q20H ESTEBAN Ondansetron HCl 4 mg 01/17/21 17:31 Zofran 4 Mg/2 Ml Vial IV 02/16/21 17:30 Q6H PRN PRN NAUSEA/VOMITING Home Medications Medication Instructions Recorded Confirmed Last Taken Type Aspirin EC 325 mg [Ecotrin 325 325 mg PO DAILY 01/17/21 01/17/21 Unknown History MG] Baclofen 10 mg PO DAILY 01/17/21 01/17/21 Unknown History Fluconazole [Diflucan ] 150 mg PO DAILY 01/17/21 01/17/21 Unknown History Oxycodone HCl 10 mg PO DAILY 01/17/21 01/17/21 Unknown History cefaDROXiL [Cefadroxil] 500 mg PO DAILY 01/17/21 01/17/21 Unknown History Initialized on 01/17/21 20:40 - END OF NOTE Code(s): D64.9 - ANEMIA, UNSPECIFIED (2) Thigh hematoma Current Visit: Yes Status: Acute Qualifiers: Encounter type: initial encounter Laterality: right Qualified Code(s): S70.11XA - Contusion of right thigh, initial encounter Code(s): S70.10XA - CONTUSION OF UNSPECIFIED THIGH, INITIAL ENCOUNTER Hospital Summary - Hospital Course Hospital Course: Last Vital Signs Temp 97.5 F 01/18/21 07:04 Pulse 65 01/18/21 07:04 Resp 18 01/18/21 07:04 BP 104/53 01/18/21 07:04 Pulse Ox 97 01/18/21 07:04 Allergies sulfasalazine Adverse Reaction (Verified 01/18/21 07:27) Patient states this is not an allergy. It just did not work for her Active Medications Acetaminophen (Tylenol 325 Mg) 650 mg PO Q4H PRN PRN PRN Reason: PAIN AND/OR FEVER Stop: 02/16/21 17:30 Aspirin (Ecotrin 325 Mg) 325 mg PO BID ESTEBAN Stop: 02/16/21 21:59 Last Admin: 01/18/21 09:52 Dose: 325 mg Documented by: Baclofen (Lioresal 10 Mg) 10 mg PO BID [facility] Stop: 02/16/21 21:59 Last Admin: 01/18/21 09:53 Dose: 10 mg Documented by: Famotidine (Pepcid 20 Mg Vial) 20 mg IV Q12HT [facility] Stop: 02/16/21 21:59 Last Admin: 01/18/21 09:55 Dose: 20 mg Documented by: Sodium Chloride (Sodium Chloride 0.9% 1000 Ml) 1,000 mls @ 50 mls/hr IV .Q20H [facility] Stop: 02/16/21 17:30 Last Admin: 01/18/21 01:02 Dose: 50 mls/hr Documented by: Naproxen (Naprosyn 500 Mg) 250 mg PO BID [facility] Stop: 02/16/21 21:59 Last Admin: 01/18/21 09:52 Dose: 250 mg Documented by: Ondansetron HCl (Zofran 4 Mg/2 Ml Vial) 4 mg IV Q6H PRN PRN PRN Reason: NAUSEA/VOMITING Stop: 02/16/21 17:30 Oxycodone HCl (Oxy-Ir 5 Mg) 10 mg PO Q6H PRN PRN PRN Reason: PAIN Stop: 01/22/21 21:22 Last Admin: 01/17/21 22:12 Dose: 10 mg Documented by: Ropinirole HCl (Requip 0.5 Mg) 1 mg PO HS [facility] Stop: 02/16/21 21:59 Last Admin: 01/17/21 22:10 Dose: 1 mg Documented by: Topiramate (Topiramate) 150 mg PO BID [facility] Stop: 02/16/21 21:59 Last Admin: 01/18/21 09:55 Dose: 150 mg Documented by: Intake & Output 01/17/21 01/18/21 11:59 11:59 Intake Total 1541 Output Total 200 Balance 1341 Weight 68.2 kg 66.6 kg Orders 01/17/21 21:23 Oxycodone HCl 5 mg Ir [Oxy-IR 5 MG] 10 mg PO Q6H PRN PRN 01/17/21 22:00 Aspirin EC 325 mg [Ecotrin 325 MG] 325 mg PO BID Baclofen 10 mg [Lioresal 10 mg] 10 mg PO BID Naproxen 500 mg [Naprosyn 500 MG] 250 mg PO BID Ropinirole HCl 0.5 mg [Requip 0.5 MG] 1 mg PO HS Topiramate 150 mg PO BID Lab Tests 01/17/21 01/17/21 01/17/21 13:50 13:50 13:55 WBC 6.9 RBC 2.22 L Hgb 6.7 L* Hct 23.5 L MCV 105.9 H MCH 30.2 MCHC 28.5 L RDW 15.9 H Plt Count 303 MPV 9.1 Gran % 76.3 H Eos # (Auto) 0.25 Absolute Lymphs (auto) 0.96 L Absolute Monos (auto) 0.39 Lymphocytes % 14.0 L Monocytes % 5.7 Eosinophils % 3.6 Basophils % 0.4 Absolute Granulocytes 5.23 Basophils # 0.03 Sodium 140 Potassium 4.1 Chloride 109 H Carbon Dioxide 24 Anion Gap 11.5 BUN 32 H Creatinine 0.94 Estimated GFR > 60.0 Glucose 85 Lactic Acid 0.5 Calcium 8.6 Total Bilirubin 0.30 AST 19 ALT 6 Alkaline Phosphatase 84 Serum Total Protein 6.3 Albumin 3.4 L Urine Color Urine Appearance Urine pH Ur Specific [place] Urine Protein Urine Ketones Urine Blood Urine Nitrite Urine Bilirubin Urine Urobilinogen Ur Leukocyte Esterase Urine WBC (Auto) Urine RBC (Auto) U Hyaline Cast (Auto) U Epithel Cells (Auto) Urine Bacteria (Auto) Urine Mucus (Auto) Urine Culture Reflexed Urine Glucose Slides for Path Review YES ABO Group Rh Factor Antibody Screen Crossmatch 01/17/21 01/17/21 01/17/21 14:18 16:42 16:42 WBC RBC Hgb Hct MCV MCH MCHC RDW Plt Count MPV Gran % Eos # (Auto) Absolute Lymphs (auto) Absolute Monos (auto) Lymphocytes % Monocytes % Eosinophils % Basophils % Absolute Granulocytes Basophils # Sodium Potassium Chloride Carbon Dioxide Anion Gap BUN Creatinine Estimated GFR Glucose Lactic Acid Calcium Total Bilirubin AST ALT Alkaline Phosphatase Serum Total Protein Albumin Urine Color YELLOW Urine Appearance CLEAR Urine pH 6.0 Ur Specific [place] 1.027 Urine Protein NEGATIVE Urine Ketones NEGATIVE Urine Blood NEGATIVE Urine Nitrite NEGATIVE Urine Bilirubin NEGATIVE Urine Urobilinogen NEGATIVE Ur Leukocyte Esterase NEGATIVE Urine WBC (Auto) 0-2 Urine RBC (Auto) NONE U Hyaline Cast (Auto) 3-5 U Epithel Cells (Auto) RARE Urine Bacteria (Auto) NONE Urine Mucus (Auto) SLIGHT Urine Culture Reflexed NO Urine Glucose NEGATIVE Slides for Path Review ABO Group O Rh Factor POSITIVE Antibody Screen NEGATIVE Crossmatch COMPATIBLE 01/18/21 01/18/21 01/18/21 02:15 02:15 03:00 WBC 5.0 RBC 2.33 L Hgb 7.0 L Hct 23.9 L MCV 102.6 H MCH 30.0 MCHC 29.3 L RDW 15.6 H Plt Count 257 MPV 8.3 Gran % 63.8 Eos # (Auto) 0.30 Absolute Lymphs (auto) 1.05 Absolute Monos (auto) 0.44 Lymphocytes % 21.0 L Monocytes % 8.8 Eosinophils % 6.0 H Basophils % 0.4 Absolute Granulocytes 3.20 Basophils # 0.02 Sodium 139 Potassium 4.0 Chloride 113 H Carbon Dioxide 22 Anion Gap 8.2 BUN 28 H Creatinine 0.75 Estimated GFR > 60.0 Glucose 93 Lactic Acid Calcium 8.0 L Total Bilirubin 0.20 AST 17 ALT 7 Alkaline Phosphatase 79 Serum Total Protein 5.4 L Albumin 2.8 L Urine Color Urine Appearance Urine pH Ur Specific [place] Urine Protein Urine Ketones Urine Blood Urine Nitrite Urine Bilirubin Urine Urobilinogen Ur Leukocyte Esterase Urine WBC (Auto) Urine RBC (Auto) U Hyaline Cast (Auto) U Epithel Cells (Auto) Urine Bacteria (Auto) Urine Mucus (Auto) Urine Culture Reflexed Urine Glucose Slides for Path Review ABO Group Rh Factor Antibody Screen Crossmatch COMPATIBLE 01/18/21 08:50 WBC RBC Hgb 9.1 L D Hct 30.4 L MCV MCH MCHC RDW Plt Count MPV Gran % Eos # (Auto) Absolute Lymphs (auto) Absolute Monos (auto) Lymphocytes % Monocytes % Eosinophils % Basophils % Absolute Granulocytes Basophils # Sodium Potassium Chloride Carbon Dioxide Anion Gap BUN Creatinine Estimated GFR Glucose Lactic Acid Calcium Total Bilirubin AST ALT Alkaline Phosphatase Serum Total Protein Albumin Urine Color Urine Appearance Urine pH Ur Specific [place] Urine Protein Urine Ketones Urine Blood Urine Nitrite Urine Bilirubin Urine Urobilinogen Ur Leukocyte Esterase Urine WBC (Auto) Urine RBC (Auto) U Hyaline Cast (Auto) U Epithel Cells (Auto) Urine Bacteria (Auto) Urine Mucus (Auto) Urine Culture Reflexed Urine Glucose Slides for Path Review ABO Group Rh Factor Antibody Screen Crossmatch - Vitals & Intake/Output Vital Signs: Vital Signs Temperature 97.5 F 01/18/21 07:04 Pulse Rate 65 01/18/21 07:04 Respiratory Rate 18 01/18/21 07:04 Blood Pressure 104/53 01/18/21 07:04 O2 Sat by Pulse Oximetry 97 01/18/21 07:04 Intake & Output: Intake & Output 01/15/21 01/16/21 01/17/21 01/18/21 11:59 11:59 11:59 11:59 Intake Total 1541 Output Total 200 Balance 1341 Weight 68.2 kg 66.6 kg - Lab Result Diagrams: 01/18/21 08:50 01/18/21 02:15 Lab Results-Last 24 Hrs: Lab Results-Last 24 Hours 01/17/21 01/17/21 01/17/21 Range/Units 13:50 13:50 13:55 WBC 6.9 (4.0-10.5) K/mm3 RBC 2.22 L (4.1-5.4) M/mm3 Hgb 6.7 L* (12.0-16.0) gm/dl Hct 23.5 L (35-47) % MCV 105.9 H (78-100) fl MCH 30.2 (26-32) pg MCHC 28.5 L (32-36) g/dl RDW 15.9 H (11.5-14.0) % Plt Count 303 (150-450) K/mm3 MPV 9.1 (7.5-11.0) fl Gran % 76.3 H (36.0-66.0) % Eos # (Auto) 0.25 (0-0.5) Absolute Lymphs (auto) 0.96 L (1.0-4.6) Absolute Monos (auto) 0.39 (0.0-1.3) Lymphocytes % 14.0 L (24.0-44.0) % Monocytes % 5.7 (0.0-12.0) % Eosinophils % 3.6 (0.00-5.0) % Basophils % 0.4 (0.0-0.4) % Absolute Granulocytes 5.23 (1.4-6.9) Basophils # 0.03 (0-0.4) Sodium 140 (137-145) mmol/L Potassium 4.1 (3.5-5.1) mmol/L Chloride 109 H (98-107) mmol/L Carbon Dioxide 24 (22-30) mmol/L Anion Gap 11.5 (5-15) MEQ/L BUN 32 H (7-17) mg/dL Creatinine 0.94 (0.52-1.04) mg/dL Estimated GFR > 60.0 ML/MIN Glucose 85 (74-106) mg/dL Lactic Acid 0.5 (0.4-2.0) Calcium 8.6 (8.4-10.2) mg/dL Total Bilirubin 0.30 (0.2-1.3) mg/dL AST 19 (14-36) U/L ALT 6 (0-35) U/L Alkaline Phosphatase 84 (38-126) U/L Serum Total Protein 6.3 (6.3-8.2) g/dL Albumin 3.4 L (3.5-5.0) g/dL Urine Color (YELLOW) Urine Appearance (CLEAR) Urine pH (5-6) Ur Specific [place] (1.005-1.025) Urine Protein (Negative) Urine Ketones (NEGATIVE) Urine Blood (0-5) Basil/ul Urine Nitrite (NEGATIVE) Urine Bilirubin (NEGATIVE) Urine Urobilinogen (0-1) mg/dL Ur Leukocyte Esterase (NEGATIVE) Urine WBC (Auto) (0-5) /HPF Urine RBC (Auto) (0-2) /HPF U Hyaline Cast (Auto) (0-2) /LPF U Epithel Cells (Auto) (FEW) /HPF Urine Bacteria (Auto) (NEGATIVE) /HPF Urine Mucus (Auto) (NEGATIVE) /HPF Urine Culture Reflexed (NO) Urine Glucose (NEGATIVE) mg/dL Slides for Path Review YES ABO Group Rh Factor Antibody Screen (NEGATIVE) Crossmatch (COMPATIBLE) 01/17/21 01/17/21 01/17/21 Range/Units 14:18 16:42 16:42 WBC (4.0-10.5) K/mm3 RBC (4.1-5.4) M/mm3 Hgb (12.0-16.0) gm/dl Hct (35-47) % MCV (78-100) fl MCH (26-32) pg MCHC (32-36) g/dl RDW (11.5-14.0) % Plt Count (150-450) K/mm3 MPV (7.5-11.0) fl Gran % (36.0-66.0) % Eos # (Auto) (0-0.5) Absolute Lymphs (auto) (1.0-4.6) Absolute Monos (auto) (0.0-1.3) Lymphocytes % (24.0-44.0) % Monocytes % (0.0-12.0) % Eosinophils % (0.00-5.0) % Basophils % (0.0-0.4) % Absolute Granulocytes (1.4-6.9) Basophils # (0-0.4) Sodium (137-145) mmol/L Potassium (3.5-5.1) mmol/L Chloride (98-107) mmol/L Carbon Dioxide (22-30) mmol/L Anion Gap (5-15) MEQ/L BUN (7-17) mg/dL Creatinine (0.52-1.04) mg/dL Estimated GFR ML/MIN Glucose (74-106) mg/dL Lactic Acid (0.4-2.0) Calcium (8.4-10.2) mg/dL Total Bilirubin (0.2-1.3) mg/dL AST (14-36) U/L ALT (0-35) U/L Alkaline Phosphatase (38-126) U/L Serum Total Protein (6.3-8.2) g/dL Albumin (3.5-5.0) g/dL Urine Color YELLOW (YELLOW) Urine Appearance CLEAR (CLEAR) Urine pH 6.0 (5-6) Ur Specific [place] 1.027 (1.005-1.025) Urine Protein NEGATIVE (Negative) Urine Ketones NEGATIVE (NEGATIVE) Urine Blood NEGATIVE (0-5) Basil/ul Urine Nitrite NEGATIVE (NEGATIVE) Urine Bilirubin NEGATIVE (NEGATIVE) Urine Urobilinogen NEGATIVE (0-1) mg/dL Ur Leukocyte Esterase NEGATIVE (NEGATIVE) Urine WBC (Auto) 0-2 (0-5) /HPF Urine RBC (Auto) NONE (0-2) /HPF U Hyaline Cast (Auto) 3-5 (0-2) /LPF U Epithel Cells (Auto) RARE (FEW) /HPF Urine Bacteria (Auto) NONE (NEGATIVE) /HPF Urine Mucus (Auto) SLIGHT (NEGATIVE) /HPF Urine Culture Reflexed NO (NO) Urine Glucose NEGATIVE (NEGATIVE) mg/dL Slides for Path Review ABO Group O Rh Factor POSITIVE Antibody Screen NEGATIVE (NEGATIVE) Crossmatch COMPATIBLE (COMPATIBLE) 01/18/21 01/18/21 01/18/21 Range/Units 02:15 02:15 03:00 WBC 5.0 (4.0-10.5) K/mm3 RBC 2.33 L (4.1-5.4) M/mm3 Hgb 7.0 L (12.0-16.0) gm/dl Hct 23.9 L (35-47) % MCV 102.6 H (78-100) fl MCH 30.0 (26-32) pg MCHC 29.3 L (32-36) g/dl RDW 15.6 H (11.5-14.0) % Plt Count 257 (150-450) K/mm3 MPV 8.3 (7.5-11.0) fl Gran % 63.8 (36.0-66.0) % Eos # (Auto) 0.30 (0-0.5) Absolute Lymphs (auto) 1.05 (1.0-4.6) Absolute Monos (auto) 0.44 (0.0-1.3) Lymphocytes % 21.0 L (24.0-44.0) % Monocytes % 8.8 (0.0-12.0) % Eosinophils % 6.0 H (0.00-5.0) % Basophils % 0.4 (0.0-0.4) % Absolute Granulocytes 3.20 (1.4-6.9) Basophils # 0.02 (0-0.4) Sodium 139 (137-145) mmol/L Potassium 4.0 (3.5-5.1) mmol/L Chloride 113 H (98-107) mmol/L Carbon Dioxide 22 (22-30) mmol/L Anion Gap 8.2 (5-15) MEQ/L BUN 28 H (7-17) mg/dL Creatinine 0.75 (0.52-1.04) mg/dL Estimated GFR > 60.0 ML/MIN Glucose 93 (74-106) mg/dL Lactic Acid (0.4-2.0) Calcium 8.0 L (8.4-10.2) mg/dL Total Bilirubin 0.20 (0.2-1.3) mg/dL AST 17 (14-36) U/L ALT 7 (0-35) U/L Alkaline Phosphatase 79 (38-126) U/L Serum Total Protein 5.4 L (6.3-8.2) g/dL Albumin 2.8 L (3.5-5.0) g/dL Urine Color (YELLOW) Urine Appearance (CLEAR) Urine pH (5-6) Ur Specific [place] (1.005-1.025) Urine Protein (Negative) Urine Ketones (NEGATIVE) Urine Blood (0-5) Basil/ul Urine Nitrite (NEGATIVE) Urine Bilirubin (NEGATIVE) Urine Urobilinogen (0-1) mg/dL Ur Leukocyte Esterase (NEGATIVE) Urine WBC (Auto) (0-5) /HPF Urine RBC (Auto) (0-2) /HPF U Hyaline Cast (Auto) (0-2) /LPF U Epithel Cells (Auto) (FEW) /HPF Urine Bacteria (Auto) (NEGATIVE) /HPF Urine Mucus (Auto) (NEGATIVE) /HPF Urine Culture Reflexed (NO) Urine Glucose (NEGATIVE) mg/dL Slides for Path Review ABO Group Rh Factor Antibody Screen (NEGATIVE) Crossmatch COMPATIBLE (COMPATIBLE) 01/18/21 Range/Units 08:50 WBC (4.0-10.5) K/mm3 RBC (4.1-5.4) M/mm3 Hgb 9.1 L D (12.0-16.0) gm/dl Hct 30.4 L (35-47) % MCV (78-100) fl MCH (26-32) pg MCHC (32-36) g/dl RDW (11.5-14.0) % Plt Count (150-450) K/mm3 MPV (7.5-11.0) fl Gran % (36.0-66.0) % Eos # (Auto) (0-0.5) Absolute Lymphs (auto) (1.0-4.6) Absolute Monos (auto) (0.0-1.3) Lymphocytes % (24.0-44.0) % Monocytes % (0.0-12.0) % Eosinophils % (0.00-5.0) % Basophils % (0.0-0.4) % Absolute Granulocytes (1.4-6.9) Basophils # (0-0.4) Sodium (137-145) mmol/L Potassium (3.5-5.1) mmol/L Chloride (98-107) mmol/L Carbon Dioxide (22-30) mmol/L Anion Gap (5-15) MEQ/L BUN (7-17) mg/dL Creatinine (0.52-1.04) mg/dL Estimated GFR ML/MIN Glucose (74-106) mg/dL Lactic Acid (0.4-2.0) Calcium (8.4-10.2) mg/dL Total Bilirubin (0.2-1.3) mg/dL AST (14-36) U/L ALT (0-35) U/L Alkaline Phosphatase (38-126) U/L Serum Total Protein (6.3-8.2) g/dL Albumin (3.5-5.0) g/dL Urine Color (YELLOW) Urine Appearance (CLEAR) Urine pH (5-6) Ur Specific [place] (1.005-1.025) Urine Protein (Negative) Urine Ketones (NEGATIVE) Urine Blood (0-5) Basil/ul Urine Nitrite (NEGATIVE) Urine Bilirubin (NEGATIVE) Urine Urobilinogen (0-1) mg/dL Ur Leukocyte Esterase (NEGATIVE) Urine WBC (Auto) (0-5) /HPF Urine RBC (Auto) (0-2) /HPF U Hyaline Cast (Auto) (0-2) /LPF U Epithel Cells (Auto) (FEW) /HPF Urine Bacteria (Auto) (NEGATIVE) /HPF Urine Mucus (Auto) (NEGATIVE) /HPF Urine Culture Reflexed (NO) Urine Glucose (NEGATIVE) mg/dL Slides for Path Review ABO Group Rh Factor Antibody Screen (NEGATIVE) Crossmatch (COMPATIBLE) - Radiology Exams Ordered Rad Exams-Entire Visit: Radiology Procedures Category Date Time Status VENOUS UNILAT/LIMITED EXTREMIT [US] Stat Exams 01/17/21 11:56 Completed - Discharge Discharge Date: 01/18/21 Disposition: Home, Self-Care Condition: Stable Prescriptions: No Action Aspirin EC 325 mg [Ecotrin 325 MG] 325 mg PO BID cefaDROXiL [Cefadroxil] 500 mg PO BID Oxycodone HCl 10 mg PO Q6H PRN PRN PRN Reason: Pain Fluconazole [Diflucan ] 150 mg PO UD Baclofen 10 mg PO BID Topiramate [Topamax] 150 mg PO BID Omeprazole 40 mg PO DAILY Levothyroxine Sodium 75 Mcg [Synthroid 75 Mcg] 75 mcg PO DAILY Ergocalciferol (Vitamin D2) [Vitamin D2] 50,000 unit PO Q7D Naproxen Sodium 220 mg [Aleve 220 MG] 220 mg PO BID Ropinirole HCl [Requip] 1 mg PO HS Acetaminophen 500 mg [Tylenol Extra Strength 500 mg] 500 mg PO TID PRN PRN PRN Reason: Pain Follow up with: MADINA KNOX MD [Primary Care Provider] - 7 Days
== END 2021-01-18 11:57 | disposition home or self-care (01) ==
LOC: ED 11:26 → MED SURG 17:14
PROVIDERS: ADMIT General Practice; ATTEND General Practice
DX: D64.9 Anemia, unspecified (principal); M79.651 Pain in right thigh; S70.11XA Contusion of right thigh, initial encounter; Z79.899 Other long term (current) drug therapy; I10 Essential (primary) hypertension; J44.9 Chronic obstructive pulmonary disease, unspecified; E03.9 Hypothyroidism, unspecified; Z96.641 Presence of right artificial hip joint; R60.9 Edema, unspecified
CPT/HCPCS: 36000; 36415; 36430; 80053; 81001; 83605; 85014; 85018; 85025; 86850; 86900; 86901; 86922; 87040; 93268; 93971; 96372; 96374; 96375; 99285; G0378; P9016; J2270; J2405; J3010; A9270-GY

== ENCOUNTER 2022-06-26 13:44 | Day surgery (SDC) | payer MEDICARE, OTHER ==
[2022-06-26] MEDS ORDERED: Depo-Medrol 40 MG/ML IM ONE (13:45)
[2022-06-26] MEDS ORDERED: XYLOCAINE-MPF 1% 5ML SDV IJ ONE (13:45)
[2022-06-26] MEDS ORDERED: Marcaine Mpf 0.5% Vial 30 Ml IJ ONE (13:45)
--- NOTE | 2022-06-26 16:32 | XRAY ---
Indication: Left greater trochanter bursa injection. Intraoperative fluoroscopy provided for 10 seconds. Single digital spot image submitted for interpretation demonstrates needle tip lateral to the left greater trochanter. Small amount of contrast injected for needle tip placement. Correlate with intraoperative findings/report.
--- NOTE | 2022-06-26 16:48 | XRAY ---
10 seconds of fluoroscopy was used in surgery for a left hip greater trochanteric bursa injection.
== END 2022-06-26 16:10 | disposition home or self-care (01) ==
LOC: SDC-PAIN 13:44
PROVIDERS: ATTEND Psychiatry & Neurology Pain Medicine
DX: M16.12 Unilateral primary osteoarthritis, left hip (principal); Z79.899 Other long term (current) drug therapy
CPT/HCPCS: 27096; 73501; 77002; G0260; J1030; Q9966

== ENCOUNTER 2022-07-17 15:46 | Day surgery (SDC) | payer MEDICARE, OTHER ==
[2022-07-17] MEDS ORDERED: XYLOCAINE-MPF 1% 5ML SDV IJ ONE (15:47)
[2022-07-17] MEDS ORDERED: Decadron 4 MG INJ IV ONE (15:47)
[2022-07-17] MEDS ORDERED: Marcaine Mpf 0.5% Vial 30 Ml IJ ONE (15:47)
[2022-07-17] MEDS ORDERED: Depo-Medrol 40 MG/ML IM ONE (15:47)
[2022-07-17] MEDS ORDERED: Lactated Ringers 1,000 ML IV ONE (16:37)
[2022-07-17] MEDS ORDERED: DIPRIVAN 200 MG/20 ML IV ONE (17:16)
--- NOTE | 2022-07-17 19:43 | XRAY ---
Indication: Left hip, left greater trochanter bursa, and left piriformis injections. Intraoperative fluoroscopy provided for 37 seconds. 3 digital spot image obtained prone submitted for interpretation demonstrates needle tip projecting lateral to left femur neck. Second needle tip lateral to left greater trochanter. Third posterior needle tip projects over the left piriformis muscle. Small amount of contrast injected for all needle tip placement. Correlate with intraoperative findings/report.
--- NOTE | 2022-07-18 09:20 | XRAY ---
37 seconds fluoroscopy time in surgery for injections of the left greater trochanteric bursa, left intraarticular joint space, and left piriformis muscle.
== END 2022-07-17 17:55 | disposition home or self-care (01) ==
LOC: SDC-PAIN 15:46
PROVIDERS: ATTEND Psychiatry & Neurology Pain Medicine
DX: M79.18 Myalgia, other site (principal); M16.12 Unilateral primary osteoarthritis, left hip; M70.62 Trochanteric bursitis, left hip
CPT/HCPCS: 20552; 20610; 73502; 77002; J1030; J1100; J2704; Q9966

== ENCOUNTER 2023-06-18 12:58 | Day surgery (SDC) | payer MEDICARE, OTHER ==
[2023-06-18] MEDS ORDERED: BUPIVACAINE 0.5% VIAL IJ ONE (12:59)
[2023-06-18] MEDS ORDERED: Depo-Medrol 40 MG/ML IM ONE (12:59)
[2023-06-18] MEDS ORDERED: LIDOCAINE HCL 1% 50 MG/5 ML VL PF IJ ONE (12:59)
[2023-06-18] MEDS ORDERED: Decadron 4 MG INJ IV ONE (12:59)
[2023-06-18] MEDS ORDERED: DIPRIVAN 200 MG/20 ML IV ONE (14:00)
[2023-06-18] MEDS ORDERED: Lactated Ringers 1,000 ML IV ONE (16:01)
--- NOTE | 2023-06-18 16:38 | XRAY ---
Indication: Left greater trochanter, left hip, and left piriformis injections. Intraoperative fluoroscopy provided for 30 seconds. 3 digital spot images obtained prone submitted for interpretation demonstrates posterior needle tip projecting over the left piriformis muscle. Additional needle tip lateral to the left femur neck and lateral to the left greater trochanter. Small amount of contrast injected for all needle tip placement. Correlate with intraoperative findings/report.
--- NOTE | 2023-06-18 16:50 | XRAY ---
30 seconds of fluoroscopy was used in surgery for a left greater trochanteric bursa, left intra-articular hip, and left piriformis injections.
== END 2023-06-18 14:30 | disposition home or self-care (01) ==
LOC: SDC-PAIN 12:58
PROVIDERS: ATTEND Psychiatry & Neurology Pain Medicine
DX: M16.12 Unilateral primary osteoarthritis, left hip (principal); M79.18 Myalgia, other site; Z79.899 Other long term (current) drug therapy
CPT/HCPCS: 20552; 20610; 73502; 77002; J1030; J1100; J2001; J2704; Q9966

== ENCOUNTER 2023-09-21 14:28 | Emergency (ER) | payer MEDICARE, OTHER ==
[2023-09-21 14:51] VITALS: TEMP 98.1
[2023-09-21 15:38] LABS: Absolute Neutrophil Ct (ANC) 2.73 x10^3/uL (1.4-6.9); BASOPHIL % 0.2 % (0.0-0.4); Basophil (Absolute #) 0.01 x10^3/uL (0-0.4); Eosinophil % 0.4 % (0.00-5.0); Eosinophil (Absolute #) 0.02 x10^3/uL (0-0.5); Hemoglobin 10.4 g/dL (12.0-16.0); IMMATURE GRAN # 0.02 x10^3u/L (0.00-0.03); IMMATURE GRAN % 0.4 % (0.00-0.4); Lymphocyte (Absolute #) 1.27 x10^3/uL (1.0-4.6); Lymphocytes % 28.3 % (24.0-44.0); Mean Cell Volume 101.6 fL (78-100); Mean Corpuscular Hgb Concent. 32.5 g/dL (32-36); Mean Platelet Volume 9.4 fL (7.5-11.0); Monocyte (Absolute #) 0.44 x10^3/uL (0.0-1.3); Monocytes % 9.8 % (0.0-12.0); Neutrophil % 60.9 % (36.0-66.0); Platelet Count 206 x10^3/uL (150-450); Red Blood Count 3.15 x10^6/uL (4.1-5.4); White Blood Count 4.5 x10^3/uL (4.0-10.5)
[2023-09-21 15:53] LABS: ALBUMIN 4.2 g/dL (3.5-5.0); ALKALINE PHOSPHATASE 72 U/L (38-126); ANION GAP 11.3 MEQ/L (5-15); BLOOD UREA NITROGEN 11 mg/dL (7-17); CHLORIDE 107 mmol/L (98-107); Calcium 8.4 mg/dL (8.4-10.2); Carbon Dioxide 23 mmol/L (22-30); Creatinine 1 0.63 mg/dL (0.52-1.04); EST GLOMERULAR FILTRATION RATE > 60.0 ML/MIN; Glucose 100 mg/dL (74-106); Potassium 3.6 mmol/L (3.5-5.1); SGOT/AST 35 U/L (14-36); SGPT/ALT 23 U/L (0-35); SODIUM 137 mmol/L (137-145); Total Protein 6.9 g/dL (6.3-8.2)
[2023-09-21] MEDS ORDERED: solu-MEDROL 125 MG, Sterile H2O 10 ml 2 ML IV ONE ×2 (16:05)
[2023-09-21] MEDS ORDERED: DUONEB 0.5-3 MG/3 ml Neb IH ONE ×2 (16:05→16:25)
--- NOTE | 2023-09-21 16:05 | ERPHSYRPT ---
- History of Present Illness Time Seen by Provider: 09/21/23 16:05 Source: patient Exam Limitations: no limitations Patient Subjective Stated Complaint: C/O SOB. States she started having symptoms and being SOB on 09/16/23. States was tested for COVID-[address] Andrei lyons's office on , 09/18/23. SOB was better yesterday but is worse again today. Patient with added complaints of right upper thigh tenderness and chest heaviness today. Triage Nursing Assessment: Patient came back to ER in a W/C. She transferred self from chair to bed with stand by assist. Patient is not SOB at this time. She does have a forceful, non-productive cough. Bases diminished and upper lobes coarse. Skin tone normal. She is alert and oriented. Physician History: The patient presents with a recent diagnosis of COVID-19 and has been taking Paxilvid as treatment. They report experiencing new onset chest pain and shortness of breath, which began earlier in the day. The chest pain is located in the center of the chest and does not radiate. The patient experiences difficulty catching their breath throughout the day, regardless of activity level. They also mention waking up gasping for breath when trying to sleep. The patient has been coughing up yellow phlegm. In addition to the recent COVID-19 diagnosis, the patient has a history of blood clots in their leg, with the last occurrence being approximately three to four years ago. They are currently taking a baby aspirin for this condition. The patient reports pain in their leg but has not noticed any swelling. They also have a history of stomach trouble. The patient denies having chronic obstructive pulmonary disease (COPD) but is noted to be wheezing during the conversation. No other major discomforts are reported at this time. Timing/Duration: week(s) (1) Activities at Onset: rest Severity of Dyspnea-Max: severe Severity of Dyspnea-Current: moderate Possible Cause: illness exposure Modifying Factors: Improves With: rest. Worsens With: nothing, exertion Associated Symptoms: constant, cough, chest pain/discomfort, wheezing, No edema, No fever, No hemoptysis, No calf pain, No leg swelling, No painful breathing, No productive cough Allergies/Adverse Reactions: No Known Drug Allergies Allergy (Verified 09/21/23 14:30) Home Medications: Baclofen 10 mg PO BID 01/17/21 [History] Ergocalciferol (Vitamin D2) [Vitamin D2] 50,000 unit PO Q7D 01/18/21 [History] Levothyroxine Sodium 75 Mcg [Synthroid 75 Mcg] 75 mcg PO DAILY 01/18/21 [History] Omeprazole 40 mg PO DAILY 01/18/21 [History] Ropinirole HCl [Requip] 1 mg PO HS 01/18/21 [History] Topiramate [Topamax] 150 mg PO BID 01/18/21 [History] Aspirin EC 81 mg [Ecotrin 81 mg] 1 tab PO DAILY 09/21/23 [History] Cyanocobalamin 1000 Mcg/ml [Cyanocobalamin B-12 1000 MCG/ML] 1 ml SQ CLARIFY 09/21/23 [History] Docusate Sodium [Colace] 1 cap PO DAILY 09/21/23 [History] Lisinopril/Hydrochlorothiazide [Lisinopril-Hctz 10-12.5 mg Tab] 1 tab PO CLARIFY 09/21/23 [History] Nirmatrelvir/Ritonavir [Paxlovid 150-100 mg Pack (Eua) (Renal Dosing)] See Rx Instructions .ROUTE .COMPLEX 09/21/23 [History] Ondansetron ODT 4 MG [Zofran Odt 4 mg] 1 tab PO Q4-6HPRN PRN 09/21/23 [History] Oxycodone/APAP 5 mg/325 mg [Percocet Tablet 5/325Mg] 1 tab PO Q6H PRN PRN 09/21/23 [History] Potassium Chloride 1 cap PO DAILY 09/21/23 [History] Upadacitinib [Rinvoq] 1 tab PO DAILY 09/21/23 [History] Hx Tetanus, Diphtheria Vaccination/Date Given: Yes Hx Influenza Vaccination/Date Given: Yes Hx Pneumococcal Vaccination/Date Given: Yes Immunizations Up to Date: Yes Travel Risk - International Travel Have you traveled outside of the country in past 3 weeks: No - Coronavirus Screening Are you exhibiting any of the following symptoms?: Yes Symptoms: Cough: New Onset, Shortness of Breath Close contact with a COVID-19 positive Pt in past 14-21 Days: Yes - Vaccine Status Have you recieved a Covid-19 vaccination: Yes Piece [employer]: [email or web address] - Review of Systems All Other Systems: Reviewed and Negative (As per HPI) - Past Medical History Pertinent Past Medical History: Yes Neurological History: No Pertinent History ENT History: No Pertinent History Cardiac History: Hypertension Respiratory History: Bronchitis, COPD Endocrine Medical History: Hypothyroidism Musculoskeletal History: Arthritis, Rheumatoid Arthritis GI Medical History: GERD, Ulcer History: Renal Disease Psycho-Social History: No Pertinent History Female Reproductive Disorders: No Pertinent History Other Medical History: COVID in August 2023 - Past Surgical History Past Surgical History: Yes Musculoskeletal: Joint Replacement, Orthopedic Surgery Female Surgical History: Hysterectomy Other Surgical History: right hip. hysterectomy. bilat knee. right rotator cuff - Social History Smoking Status: Former smoker Exposure to second hand smoke: No Drug Use: none Patient Lives Alone: No - Nursing Vital Signs Nursing Vital Signs: Initial Vital Signs Temperature 98.1 F 09/21/23 14:29 Pulse Rate 63 09/21/23 14:29 Respiratory Rate 18 09/21/23 14:29 Blood Pressure 155/41 09/21/23 14:29 O2 Sat by Pulse Oximetry 99 09/21/23 14:29 Pain Scale Pain Intensity 4 - Physical Exam General Appearance: no apparent distress, alert Eye Exam: eyes nml inspection Ears, Nose, Throat Exam: hearing grossly normal Neck Exam: normal inspection, non-tender, supple, full range of motion Respiratory Exam: airway intact, diminished breath sounds, wheezing, No respiratory distress Cardiovascular/Chest Exam: normal heart sounds, regular rate/rhythm, No edema Abdominal/Gastrointestinal Exam: soft, normal bowel sounds, No tenderness Extremity Exam: non-tender, No calf tenderness, No swelling Neurologic Exam: alert, oriented x 3, cooperative Skin Exam: normal color, warm, dry, No rash Lymphatic Exam: No adenopathy SpO2 Interpretation: normal SpO2: 99 O2 Delivery: Room Air - Course Nursing assessment & vital signs reviewed: Yes EKG Interpreted by Me: RATE (59), Sinus Rhythm, NORMAL AXIS, NORMAL INTERVALS, NORMAL QRS, NORMAL ST-T - Radiology Exams Chest X-ray Interpretation: Interpreted by me, Negative - CT Exams Chest CT Interpretation: Tele-radiologist Report (incomplete opacification of basal segments of the left pulmonary artery, less likely, but PE can't be excluded. No PNA. ) Ordered Tests: Medication Summary Discontinued Medications Generic Name Dose Route Start Last Admin Trade Name Melissa PRN Reason Stop Dose Admin Albuterol/Ipratropium 3 ml 09/21/23 16:05 09/21/23 16:26 Ipratropium/Albuterol Sulfate 3 Ml Ampul.Neb IH 09/21/23 16:06 3 ml STAT ONE Administration Albuterol/Ipratropium Confirm 09/21/23 16:25 Ipratropium/Albuterol Sulfate 3 Ml Ampul.Neb Administered 09/21/23 16:26 Dose 3 ml IH .STK-MED ONE Methylprednisolone Sodium 0 mg 09/21/23 16:05 09/21/23 16:35 Succinate 125 mg/ Sterile IV 09/21/23 16:06 125 mg Water 2 ml STAT ONE Administration Methylprednisolone Sodium Succinate Confirm 09/21/23 16:34 Methylprednis Sod Succ 125 Mg/2 Ml Vial Administered 09/21/23 16:35 Dose 125 mg .ROUTE .STK-MED ONE Sterile Water Confirm 09/21/23 16:34 Water For Injection,Sterile 10 Ml Vial Administered 09/21/23 16:35 Dose 10 ml IJ .STK-MED ONE Lab/Rad Data: Laboratory Result Diagrams 09/21/23 15:29 09/21/23 15:29 Laboratory Results 09/21/23 09/21/23 09/21/23 Range/Units 16:06 16:05 15:48 WBC (4.0-10.5) x10^3/uL RBC (4.1-5.4) x10^6/uL Hgb (12.0-16.0) g/dL Hct (35-47) % MCV (78-100) fL MCH (26-32) pg MCHC (32-36) g/dL RDW (11.5-14.0) % Plt Count (150-450) x10^3/uL MPV (7.5-11.0) fL Gran % (36.0-66.0) % Immature Gran % (Auto) (0.00-0.4) % Nucleat RBC Rel Count (0.00-0.1) % Eos # (Auto) (0-0.5) x10^3/uL Immature Gran # (Auto) (0.00-0.03) x10^3u/L Absolute Lymphs (auto) (1.0-4.6) x10^3/uL Absolute Monos (auto) (0.0-1.3) x10^3/uL Absolute Nucleated RBC (0.00-0.01) x10^3u/L Lymphocytes % (24.0-44.0) % Monocytes % (0.0-12.0) % Eosinophils % (0.00-5.0) % Basophils % (0.0-0.4) % Absolute Granulocytes (1.4-6.9) x10^3/uL Basophils # (0-0.4) x10^3/uL D-Dimer (0.0-0.50) mg/L pO2/FiO2 Ratio 21.0 % VBG pH 7.41 (7.32-7.42) VBG pCO2 at Pat Temp 38 L (42-55) mm/Hg VBG pO2 at Pat Temp 44 H (25-40) mm/Hg VBG HCO3 24.1 (22-28) meq/L VBG O2 Sat (Kaitlynn) 83.1 L (95-100) VBG Base Excess -0.4 (-2.0-2.0) VBG Hemoglobin 10.5 VBG Carboxyhemoglobin 6.9 (0.0-6.9) % T HGB POC Potassium 3.6 (3.5-5.1) Sodium (137-145) mmol/L Potassium (3.5-5.1) mmol/L Chloride (98-107) mmol/L Carbon Dioxide (22-30) mmol/L Anion Gap (5-15) MEQ/L BUN (7-17) mg/dL Creatinine (0.52-1.04) mg/dL Estimated GFR ML/MIN Glucose (74-106) mg/dL Lactic Acid 1.6 (0.4-2.0) Calcium (8.4-10.2) mg/dL Magnesium 2.2 (1.6-2.3) mg/dL Total Bilirubin (0.2-1.3) mg/dL AST (14-36) U/L ALT (0-35) U/L Alkaline Phosphatase (38-126) U/L Troponin I (0.000-0.034) ng/mL NT-Pro-B Natriuret Pep (<300) pg/mL Serum Total Protein (6.3-8.2) g/dL Albumin (3.5-5.0) g/dL 09/21/23 09/21/23 09/21/23 Range/Units 15:29 15:29 15:29 WBC (4.0-10.5) x10^3/uL RBC (4.1-5.4) x10^6/uL Hgb (12.0-16.0) g/dL Hct (35-47) % MCV (78-100) fL MCH (26-32) pg MCHC (32-36) g/dL RDW (11.5-14.0) % Plt Count (150-450) x10^3/uL MPV (7.5-11.0) fL Gran % (36.0-66.0) % Immature Gran % (Auto) (0.00-0.4) % Nucleat RBC Rel Count (0.00-0.1) % Eos # (Auto) (0-0.5) x10^3/uL Immature Gran # (Auto) (0.00-0.03) x10^3u/L Absolute Lymphs (auto) (1.0-4.6) x10^3/uL Absolute Monos (auto) (0.0-1.3) x10^3/uL Absolute Nucleated RBC (0.00-0.01) x10^3u/L Lymphocytes % (24.0-44.0) % Monocytes % (0.0-12.0) % Eosinophils % (0.00-5.0) % Basophils % (0.0-0.4) % Absolute Granulocytes (1.4-6.9) x10^3/uL Basophils # (0-0.4) x10^3/uL D-Dimer 1.08 H* (0.0-0.50) mg/L pO2/FiO2 Ratio % VBG pH (7.32-7.42) VBG pCO2 at Pat Temp (42-55) mm/Hg VBG pO2 at Pat Temp (25-40) mm/Hg VBG HCO3 (22-28) meq/L VBG O2 Sat (Kaitlynn) (95-100) VBG Base Excess (-2.0-2.0) VBG Hemoglobin VBG Carboxyhemoglobin (0.0-6.9) % T HGB POC Potassium (3.5-5.1) Sodium 137 (137-145) mmol/L Potassium 3.6 (3.5-5.1) mmol/L Chloride 107 (98-107) mmol/L Carbon Dioxide 23 (22-30) mmol/L Anion Gap 11.3 (5-15) MEQ/L BUN 11 (7-17) mg/dL Creatinine 0.63 (0.52-1.04) mg/dL Estimated GFR > 60.0 ML/MIN Glucose 100 (74-106) mg/dL Lactic Acid (0.4-2.0) Calcium 8.4 (8.4-10.2) mg/dL Magnesium (1.6-2.3) mg/dL Total Bilirubin 0.30 (0.2-1.3) mg/dL AST 35 (14-36) U/L ALT 23 (0-35) U/L Alkaline Phosphatase 72 (38-126) U/L Troponin I < 0.012 (0.000-0.034) ng/mL NT-Pro-B Natriuret Pep 132 (<300) pg/mL Serum Total Protein 6.9 (6.3-8.2) g/dL Albumin 4.2 (3.5-5.0) g/dL 09/21/23 Range/Units 15:29 WBC 4.5 (4.0-10.5) x10^3/uL RBC 3.15 L (4.1-5.4) x10^6/uL Hgb 10.4 L (12.0-16.0) g/dL Hct 32.0 L (35-47) % MCV 101.6 H (78-100) fL MCH 33.0 H (26-32) pg MCHC 32.5 (32-36) g/dL RDW 14.0 (11.5-14.0) % Plt Count 206 (150-450) x10^3/uL MPV 9.4 (7.5-11.0) fL Gran % 60.9 (36.0-66.0) % Immature Gran % (Auto) 0.4 (0.00-0.4) % Nucleat RBC Rel Count 0.0 (0.00-0.1) % Eos # (Auto) 0.02 (0-0.5) x10^3/uL Immature Gran # (Auto) 0.02 (0.00-0.03) x10^3u/L Absolute Lymphs (auto) 1.27 (1.0-4.6) x10^3/uL Absolute Monos (auto) 0.44 (0.0-1.3) x10^3/uL Absolute Nucleated RBC 0.00 (0.00-0.01) x10^3u/L Lymphocytes % 28.3 (24.0-44.0) % Monocytes % 9.8 (0.0-12.0) % Eosinophils % 0.4 (0.00-5.0) % Basophils % 0.2 (0.0-0.4) % Absolute Granulocytes 2.73 (1.4-6.9) x10^3/uL Basophils # 0.01 (0-0.4) x10^3/uL D-Dimer (0.0-0.50) mg/L pO2/FiO2 Ratio % VBG pH (7.32-7.42) VBG pCO2 at Pat Temp (42-55) mm/Hg VBG pO2 at Pat Temp (25-40) mm/Hg VBG HCO3 (22-28) meq/L VBG O2 Sat (Kaitlynn) (95-100) VBG Base Excess (-2.0-2.0) VBG Hemoglobin VBG Carboxyhemoglobin (0.0-6.9) % T HGB POC Potassium (3.5-5.1) Sodium (137-145) mmol/L Potassium (3.5-5.1) mmol/L Chloride (98-107) mmol/L Carbon Dioxide (22-30) mmol/L Anion Gap (5-15) MEQ/L BUN (7-17) mg/dL Creatinine (0.52-1.04) mg/dL Estimated GFR ML/MIN Glucose (74-106) mg/dL Lactic Acid (0.4-2.0) Calcium (8.4-10.2) mg/dL Magnesium (1.6-2.3) mg/dL Total Bilirubin (0.2-1.3) mg/dL AST (14-36) U/L ALT (0-35) U/L Alkaline Phosphatase (38-126) U/L Troponin I (0.000-0.034) ng/mL NT-Pro-B Natriuret Pep (<300) pg/mL Serum Total Protein (6.3-8.2) g/dL Albumin (3.5-5.0) g/dL - Progress Progress: improved Air Movement: good Progress Note: -Vitals unremarkable -Overall sick but non-toxic with coarse breath sounds and wheezes bilaterally. No significant respiratory distress. Clinical picture is consistent with COPD, especially with known history. Other diagnoses such as PE, PNA, ACS, CHF, allergic reaction seem less likely. -Starting on nebs and steroids with basic workup and will re-assess. -Due to patient's recent COVID-19 infection and hx of blood clots D-dimer was ordered which came back elevated. CTA chest was ordered which showed an inconclusive left basal segment of the pulmonary artery that was thought to be artifact, but PE couldn't be definitively excluded. I discussed this at length with the patient. With shared decision making she decided to forego anticoagulation at this time and will return if sxs fail to improve. After nebs and steroids, patient is feeling much better. Breathing is non- labored and wheezes are almost completely absent. CXR and labs unremarkable. Given the patients improvement in symptoms, I still think this was likely all due to COPD exacerbation and while more severe malignant processes such as PE, occult PNA, allergic reacion, or ACS are still possibilities it seems highly unlikely. This was discussed with the patient. The patient states they feel much better and would like to go home. Vitals are stable and satting well on RA. The plan is for outpatient therapy with a short course of steroids and scheduled breathing treatments for the next 2 days. Return precautions were extensively discussed and the patient understands to return for any worsening symptoms or fa ilure to improve. Encouraged patient to start taking her Advair inhaler daily as previously prescribed. Blood Culture(s) Obtained: No Antibiotics given: No Counseled pt/family regarding: lab results, diagnosis, need for follow-up, rad results Medical Desision Making - Diagnostic Testing Diagnostic test were ordered, analyzed, and reviewed by me: Yes Radiological Interpretation: Interpreted by me, Reviewed by me, Teleradiologist Report - Risk of complications The pt has a mod risk of morbidity or mortality based on: Need for prescription drug management - Departure Departure Disposition: Home Clinical Impression: SOB (shortness of breath), Chest discomfort, History of blood clots, COVID-19, Anemia, Elevated d-dimer Condition: Good Critical Care Time: No Referrals: MADINA KNOX MD [Primary Care Provider] - Follow up/PCP as directed Instructions: Shortness of Breath (Dyspnea) (DC) Prescriptions: predniSONE [Prednisone] 50 mg PO DAILY #5 tablet
[2023-09-21 16:21] LABS: VBG BASE EXCESS -0.4 (-2.0-2.0); VBG CARBOXYHEMOGLOBIN 6.9 % T HGB (0.0-6.9); VBG HCO3- 24.1 meq/L (22-28); VBG HEMOGLOBIN 10.5; VBG O2 SATURATION 83.1 (95-100); VBG POTASSIUM 3.6 (3.5-5.1); VBG pH 7.41 (7.32-7.42)
[2023-09-21 16:32] VITALS: RESP 16
[2023-09-21 16:34] LABS: NT PRO BNPII 132 pg/mL (<300); TROPONIN < 0.012 ng/mL (0.000-0.034)
[2023-09-21] MEDS ORDERED: Sterile H2O 10 ml IJ ONE (16:34)
[2023-09-21] MEDS ORDERED: solu-MEDROL ONE (16:34)
[2023-09-21 17:44] VITALS: BP 153/71; PULSE 59
--- NOTE | 2023-09-21 17:49 | XRAY ---
CLINICAL HISTORY:sob, cp COMPARISON:None. TECHNIQUE:Contiguous axial CT images of the chest were acquired without administration of intravenous contrast. Coronal and sagittal reconstructions were obtained. FINDINGS: The pulmonary trunk, main right, and rest of the left pulmonary arteries are normally opacified. There are incomplete to non-opacification of the basal segments of the left pulmonary artery. No definite evidence of aneurysmal dilatation of the thoracic aorta. No consolidation, mass, or nodules. No pneumothorax. No free or encysted pleural effusion. Heart size is normal, and there is no pericardial effusion. No pathologically enlarged mediastinal, hilar, or axillary lymph node was identified. There is no definite mass lesion in the chest wall. Degenerative osseous changes are seen in the thoracic spine. Anterior compression deformities are seen at the T11 and T12 vertebral bodies. Multiple cortical cysts are seen in both kidneys. A spinal cord stimulator is seen in placed. IMPRESSION: 1. Incomplete to non-opacification of the basal segments of the left pulmonary artery. These are most probably due to flow artifacts, however less likely possibility of pulmonary embolism cannot be entirely excluded. Conventional angiogram may be done for further evaluation. 2. No consolidation, mass, or nodules. 3. Anterior compression deformities at T11 and T12 vertebral bodies. 4. Bilateral renal cortical cysts, Bosniak I. Electronically Signed by: Sofia Malloy MD. (09/21/2023 16:47:22 [employer])
[2023-09-21 18:05] VITALS: O2SAT 99
--- NOTE | 2023-09-21 18:57 | XRAY ---
Indication: Short of breath. Cough. Recent Covid 19. Comparison: None Portable chest demonstrates minimal left base subsegmental atelectasis/scarring. Remaining heart and lungs unremarkable. Bony thorax intact with osteopenia, mild degenerative changes, mild dextroscoliosis centered at thoracolumbar junction, and epidural leads terminating T7-T8. Impression: Nonacute chest with chronic features.
== END 2023-09-21 18:31 | disposition home or self-care (01) ==
LOC: ED 14:28
DX: R06.02 Shortness of breath (principal); R07.9 Chest pain, unspecified; Z86.718 Personal history of other venous thrombosis and embolism; U07.1 COVID-19; D64.9 Anemia, unspecified; R79.1 Abnormal coagulation profile; I10 Essential (primary) hypertension; Z79.52 Long term (current) use of systemic steroids; Z79.891 Long term (current) use of opiate analgesic; Z79.899 Other long term (current) drug therapy
CPT/HCPCS: 36000; 36415; 71045; 71260; 80053; 82805; 83605; 83735; 83880; 84484; 85025; 85379; 93005; 93041; 94640; 94760; 96374; 99284; J2930; A9270-GY

== ENCOUNTER 2024-10-21 07:00 | Day surgery (SDC) | payer MEDICARE, OTHER ==
--- NOTE | 2024-10-20 23:32 | HP ---
HISTORY OF PRESENT ILLNESS: The patient is a 69-year-old female, presents with biliary dyskinesia. HIDA scan was 21. She had some mild distention on ultrasound. She says her abdomen hurts all the time. It is worse after eating. She states this is different from her reflux pain. She also has nausea. This has been going for 6 months, and her omeprazole does not help with pain. She is on hydrocodone 7.5 four times a day [facility]. She has rheumatoid arthritis. PAST MEDICAL HISTORY: Hypertension, rheumatoid arthritis, restless leg, GERD, thyroid, hyperlipidemia. HOME MEDICATIONS: Hercules, aspirin, vitamin B, potassium, ropinirole, omeprazole, levothyroxine, baclofen, lisinopril, Rinvoq, vitamin D, sucralfate, topiramate, folic acid, rosuvastatin. ALLERGIES: None. PAST SURGICAL HISTORY: Cataracts, rotator cuff, hip replacement, laminectomy. SOCIAL HISTORY: Former smoker. FAMILY HISTORY: None. REVIEW OF SYSTEMS: CONSTITUTIONAL: Denies fever or chills. CHEST: Denies shortness of breath. CARDIOVASCULAR: Denies chest pain. ABDOMEN: Reports abdominal pain. PHYSICAL EXAMINATION: GENERAL: No acute distress. CARDIOVASCULAR: Regular rate and rhythm. RESPIRATORY: Nonlabored. No shortness of breath. ABDOMEN: Soft. IMPRESSION: Biliary dyskinesia. PLAN: Laparoscopic cholecystectomy with Dr. David Perez. This report was dictated for Dr. Perez by Pretty Fields NP.
[2024-10-21] MEDS: Lactated Ringers 1,000 ML IV SCH (07:33)
[2024-10-21] MEDS: MEFOXIN 2 GM PREMIX** 2 GM/50 ML ML IV SCH (07:34)
[2024-10-21 07:53] VITALS: RESP 16; TEMP 97.8
[2024-10-21] MEDS ORDERED: Lactated Ringers 1,000 ML IV SCH (08:00)
[2024-10-21] MEDS ORDERED: Sodium Chloride 0.9% 1000 ML 1,000 ML ONE (08:08)
[2024-10-21] MEDS ORDERED: Sensorcaine 0.25% 10 ML ONE (08:08)
[2024-10-21] MEDS ORDERED: ROCURONIUM BROMIDE IV ONE (09:31)
[2024-10-21] MEDS ORDERED: Zofran 4 MG/2 ML VIAL ONE ×2 (09:31→10:44)
[2024-10-21] MEDS ORDERED: Xylocaine-Mpf 2% 5 Ml Vial ONE (09:31)
[2024-10-21] MEDS ORDERED: TORAdol 30 mg Injection ONE (09:31)
[2024-10-21] MEDS ORDERED: Decadron 4 MG INJ ONE (09:31)
[2024-10-21] MEDS ORDERED: SUBLIMAZE 100 MCG/2 ML ONE ×2 (09:31→10:30)
[2024-10-21] MEDS ORDERED: DIPRIVAN 200 MG/20 ML IV ONE (09:31)
[2024-10-21] MEDS ORDERED: BRIDION 200MG/2ML IV ONE (09:31)
[2024-10-21] MEDS ORDERED: Hydromorphone 1 mg/ml Injection ONE (10:39)
[2024-10-21 11:42] VITALS: O2SAT 94
[2024-10-21 12:00] VITALS: BP 138/74; PULSE 62
--- NOTE | 2024-10-22 11:13 | OP ---
SURGERY DATE/TIME: 10/21/2024 [id number] PREOPERATIVE DIAGNOSIS: Gallbladder dyskinesia. POSTOPERATIVE DIAGNOSIS: Gallbladder dyskinesia. PROCEDURE: Laparoscopic cholecystectomy. SURGEON: David Perez MD. ANESTHESIA: General endotracheal tube. COMPLICATIONS: None. CONDITION: Stable. DESCRIPTION OF PROCEDURE AND FINDINGS: The patient was taken to surgery. General anesthetic. Routine prep and drape. Veress needle inserted. Opening pressure of 1. Insufflated to a pressure of 14. Gallbladder was distended, and there were obvious cholesterosis particles. Of interest, there was a duodenal cyst that was of no significance and was left alone. The liver was a little dark. Cyst duct triply clipped. Cystic artery triply clipped. Gallbladder rolled out of gallbladder fossa. Gallbladder delivered through the epigastric port. Hole closure device was used, although was only about 8 mm. Field was dry. CO2 was exsufflated. Skin closed with uday. Sterile dressing applied. Patient tolerated the procedure satisfactory.
== END 2024-10-21 12:05 | disposition home or self-care (01) ==
LOC: SDC 07:00
PROVIDERS: ATTEND Surgery
DX: K82.8 Other specified diseases of gallbladder (principal)
CPT/HCPCS: 99100; J0694; J1100; J1171; J1885; J2405; J2704; J3010

== ENCOUNTER 2025-01-27 09:26 | Day surgery (SDC) | payer MEDICARE, OTHER ==
[2025-01-27] MEDS ORDERED: LIDOCAINE HCL 1% 50 MG/5 ML VL IJ ONE (09:27)
[2025-01-27] MEDS ORDERED: BUPIVACAINE 0.5% VIAL IJ ONE (09:27)
[2025-01-27] MEDS ORDERED: dexAMETHasone sodium phosphate IJ ONE (09:27)
[2025-01-27] MEDS ORDERED: propofoL IV ONE (10:59)
--- NOTE | 2025-01-27 21:09 | XRAY ---
Indication: Left hip, left greater trochanter bursa, and left piriformis injection. Intraoperative fluoroscopy provided for 22 seconds. 4 digital spot image obtained prone demonstrates needle tips projecting lateral to left femur neck, left greater trochanter, and left piriformis. Small amount of contrast injected for all needle tip placement. Correlate with intraoperative findings/report.
--- NOTE | 2025-01-27 21:52 | XRAY ---
22 seconds of fluoroscopy was used in surgery for a left intra-articular hip, greater trochanteric bursa, and piriformis injection.
== END 2025-01-27 11:26 | disposition home or self-care (01) ==
LOC: SDC-PAIN 09:26
PROVIDERS: ATTEND Psychiatry & Neurology Pain Medicine
DX: M16.12 Unilateral primary osteoarthritis, left hip (principal); M79.18 Myalgia, other site
CPT/HCPCS: 20552; 20610; 73502; 77002; J1100; J2704; Q9966